=== PATIENT | female | born 1955 | race Caucasian/White ===

== ENCOUNTER 2018-09-05 16:20 | Emergency (ER) | payer MEDICARE, MEDICAID ==
[~2018-09-05] VITALS: Ht 157.5 cm; Wt 59.1 kg
[~2018-09-05 16:20] MED LIST: ALBU6.7H INH; ATOR-2 PO; CITA20TA24 PO; DIFL5DRO LEFTEYE; DIPH25CA83 PO; ESTR0.6261 PO; MELO7.5O PO; OMEP20TA23 PO; PRAM0.5T3 PO; PRED10TA23 PO; PROP10DR3; PYRI100T2 PO; TIOT18CA3
[2018-09-05] MEDS ORDERED: LORazepam 2 mg/ml vial IV ONE (16:50)
[2018-09-05] MEDS ORDERED: morphine 4 MG/ML inj SYRINge IV ONE (16:50)
[2018-09-05] MEDS ORDERED: ondansetron/PF 4mg/2ml inj IV ONE ×2 (16:50→21:35)
[2018-09-05] MEDS ORDERED: normal saline 1000ML IV soln IVB ONE (16:50)
[2018-09-05] MEDS ORDERED: albuterol 2.5 MG/3 ML nebule NEB ONE (16:50)
[2018-09-05 18:12] LABS: BASOPHILS % (AUTO) 0.4 % (0-1); EOSINOPHILS # (AUTO) 0.1 X10'3 (0-0.9); EOSINOPHILS % (AUTO) 0.6 % (0-6); HEMATOCRIT 46.3 % (35.0-45.0); HEMOGLOBIN 15.5 g/dl (12.0-16.0); LYMPHOCYTES # (AUTO) 5.1 X10'3 (1.1-4.8); LYMPHOCYTES % (AUTO) 44.6 % (21-51); MEAN CORPUSCULAR HEMOGLOBIN 30.1 PG (27.0-31.0); MEAN CORPUSCULAR HGB CONC 33.6 % (33.0-36.5); MEAN CORPUSCULAR VOLUME 89.8 FL (78-98); MEAN PLATELET VOLUME 7.9 FL (7.4-10.4); MONOCYTES # (AUTO) 0.4 X10'3 (0-0.9); MONOCYTES % (AUTO) 3.6 % (2-12); NEUTROPHILS # (AUTO) 5.8 X10'3 (1.8-7.7); NEUTROPHILS % (AUTO) 50.8 % (42-75); PLATELET COUNT 200 X10'3 (140-440); RED BLOOD COUNT 5.16 X10'6 (4.20-5.60); RED CELL DISTRIBUTION WIDTH 14.5 % (11.5-14.5); WHITE BLOOD COUNT 11.3 X10'3 (4.5-11.0)
[2018-09-05 18:28] LABS: ALANINE AMINOTRANSFERASE 27 U/L (12-78); ALBUMIN 3.5 G/DL (3.4-5.0); ALBUMIN/GLOBULIN RATIO 0.9 (1.1-1.5); ALKALINE PHOSPHATASE 111 IU/L (46-116); ANION GAP 14 (8-16); ASPARTATE AMINO TRANSFERASE 25 U/L (10-37); BILIRUBIN,TOTAL 0.4 MG/DL (0.1-1.0); BLOOD UREA NITROGEN 13 MG/DL (7-18); BUN/CREATININE RATIO 18.8 (6.6-38.0); CALCIUM 8.7 MG/DL (8.5-10.1); CHLORIDE 106 MMOL/L (99-107); CREATININE 0.69 MG/DL (0.40-0.90); GLUCOSE 94 MG/DL (70-104); POTASSIUM 3.2 MMOL/L (3.5-5.1); SODIUM 143 MMOL/L (135-145); TOTAL CARBON DIOXIDE 23.2 MMOL/L (24-32); TOTAL PROTEIN 7.2 G/DL (6.4-8.2); eGFR 86 ML/MIN
[2018-09-05 18:29] LABS: INR 0.9 INR; PARTIAL THROMBOPLASTIN TIME 27 SECONDS (22-32); PROTHROMBIN TIME 9.1 SECONDS (9.0-12.0)
[2018-09-05 18:34] LABS: MAGNESIUM 1.9 MG/DL (1.5-2.4)
[2018-09-05 19:13] VITALS: BP 141/74
[2018-09-05 20:20] LABS: CLARITY,URINE CLEAR (Clear); COLOR,URINE YELLOW (Yellow); GLUCOSE, URINE NEGATIVE (Neg); KETONES,URINE >=80 mg/dl (Neg); LEUKOCYTE ESTERASE ,URINE NEGATIVE (Neg); NITRITES, URINE NEGATIVE (Neg); OCCULT BLOOD,URINE SMALL (Neg); PROTEIN,URINE NEGATIVE (Neg); UROBILINOGEN,URINE 0.2 E.U/dL (0.2-1.0)
[2018-09-05 20:21] LABS: UA COLLECTION TYPE CLN CATCH MIDSTREAM
[2018-09-05 20:41] LABS: BACTERIA,URINE FEW /HPF (Neg); MUCUS STRANDS FEW /LPF (Neg); SQUAMOUS EPITHELIAL CELL,UR FEW /LPF (FEW); WBC,URINE NONE SEEN /HPF (0-4)
[2018-09-05] MEDS ORDERED: ONDA8TAB6 PO (21:41)
== END 2018-09-05 22:01 | disposition home or self-care (01) ==
LOC: ER 16:21
DX: J06.9 Acute upper respiratory infection, unspecified (principal); J44.1 Chronic obstructive pulmonary disease with (acute) exacerbation; M19.90 Unspecified osteoarthritis, unspecified site; Z90.49 Acquired absence of other specified parts of digestive tract; Z90.710 Acquired absence of both cervix and uterus; Z87.891 Personal history of nicotine dependence; Z79.899 Other long term (current) drug therapy
CPT/HCPCS: 36415; 71045; 74176; 80053; 81001; 83605; 83735; 83880; 84484; 85025; 85610; 85730; 87040; 87502; 87503; 93005; 94640; 94760; 96361; 96374; 96375; 96376; 99284; J2060; J2270; J2405; J7030

== ENCOUNTER 2018-10-20 16:03 | Inpatient (IN) | payer MEDICARE, MEDICAID | END 2018-10-29 12:01 | disposition home or self-care (01) | LOC: ER 16:03 → ED HOLD 19:14 → SUR 3N 21:07 | DX: J96.21 Acute and chronic respiratory failure with hypoxia (principal); J18.9 Pneumonia, unspecified organism; J44.1 Chronic obstructive pulmonary disease with (acute) exacerbation; E87.1 Hypo-osmolality and hyponatremia; J44.0 Chronic obstructive pulmonary disease with (acute) lower respiratory infection; J20.9 Acute bronchitis, unspecified; R00.0 Tachycardia, unspecified; E87.6 Hypokalemia ==

== ENCOUNTER 2018-11-17 18:22 | Emergency (ER) | payer MEDICARE, MEDICAID ==
[~2018-11-17] VITALS: Ht 157.5 cm; Wt 56.0 kg
[~2018-11-17 18:22] MED LIST changes: +ALB0.5UD IH; -ALBU6.7H INH; +ALBU8.5H8 INH; -ATOR-2 PO; +BUDE10.2 INH; -CITA20TA24 PO; -DIFL5DRO LEFTEYE; +DULO20CA17 PO; +FLUT16SP18 NS; -MELO7.5O PO; +MONT10TA24 PO; -OMEP20TA23 PO; -PROP10DR3; -PYRI100T2 PO; -TIOT18CA3; +TIOT18CA3 INH
[2018-11-17 18:29] VITALS: BP 179/101
[2018-11-17 19:08] LABS: EOSINOPHILS # (AUTO) 0.3 X10'3 (0-0.9); HEMATOCRIT 40.9 % (35.0-45.0); HEMOGLOBIN 13.8 g/dl (12.0-16.0); MEAN CORPUSCULAR HGB CONC 33.7 g/dL (33.0-36.5)
[2018-11-17 19:10] LABS: BASOPHILS # (AUTO) 0.2 X10'3 (0-0.2); BASOPHILS % (AUTO) 0.9 % (0-1); EOSINOPHILS % (AUTO) 1.3 % (0-6); LYMPHOCYTES # (AUTO) 15.5 X10'3 (1.1-4.8); LYMPHOCYTES % (AUTO) 68.2 % (21-51); MEAN CORPUSCULAR HEMOGLOBIN 30.3 PG (27.0-31.0); MEAN CORPUSCULAR VOLUME 89.9 FL (78-98); MEAN PLATELET VOLUME 6.8 FL (7.4-10.4); MONOCYTES # (AUTO) 0.8 X10'3 (0-0.9); MONOCYTES % (AUTO) 3.3 % (2-12); NEUTROPHILS % (AUTO) 26.3 % (42-75); PLATELET COUNT 608 X10'3 (140-440); RED BLOOD COUNT 4.55 X10'6 (4.20-5.60); RED CELL DISTRIBUTION WIDTH 14.9 % (11.5-14.5); WHITE BLOOD COUNT 22.7 X10'3 (4.5-11.0)
[2018-11-17 19:19] LABS: ALANINE AMINOTRANSFERASE 17 U/L (12-78); ALBUMIN 3.5 G/DL (3.4-5.0); ALKALINE PHOSPHATASE 102 IU/L (46-116); ANION GAP 7 (8-16); ASPARTATE AMINO TRANSFERASE 11 U/L (10-37); BILIRUBIN,TOTAL 0.2 MG/DL (0.1-1.0); BLOOD UREA NITROGEN 14 MG/DL (7-18); BUN/CREATININE RATIO 15.6 (6.6-38.0); CHLORIDE 107 MMOL/L (99-107); GLUCOSE 94 MG/DL (70-104); MAGNESIUM 2.2 MG/DL (1.5-2.4); POTASSIUM 3.9 MMOL/L (3.5-5.1); SODIUM 145 MMOL/L (135-145); TOTAL CARBON DIOXIDE 31.4 MMOL/L (24-32); eGFR 63 ML/MIN
[2018-11-17 20:36] LABS: TOTAL CELLS COUNTED 100
[2018-11-17 20:37] LABS: PLATELET ESTIMATE INCREASED
[2018-11-17 20:38] LABS: SMUDGE CELLS FEW
[2018-11-17] MEDS ORDERED: albuterol 2.5 MG/3 ML nebule NEB ONE (20:55)
--- NOTE | 2018-11-17 21:08 | NUR ---
rt paged, phone given to pt; slippers placed onto pt
[2018-11-17] MEDS ORDERED: ATOR-2 PO (21:21)
[2018-11-17] MEDS ORDERED: PRAM0.5T12 PO (21:21)
[2018-11-17] MEDS ORDERED: TIOT4MIS2 INH (21:21)
[2018-11-17] MEDS ORDERED: CITA20TA26 PO (21:21)
[2018-11-17] MEDS ORDERED: ESTR1.25 PO (21:21)
[2018-11-17] MEDS ORDERED: UMEC1DIS INH (21:22)
--- NOTE | 2018-11-17 21:23 | NUR ---
I inadvertantly did charting under Sebastian Presley' log in by error. The medication reconsiliation was done by me. Obviously, not Sebastian.
--- NOTE | 2018-11-17 21:34 | NUR ---
assisted pt to find phone number to her [employer] company so she can call them to inform them she is in the hospital, as she has visits scheduled for tomorrow. Also informed her that she is NPO.
[2018-11-17] MEDS ORDERED: metroNIDAZOLE 500mg tablet PO ONE (22:20)
[2018-11-17] MEDS ORDERED: ciprofloxacin 250mg tablet PO ONE (22:20)
[2018-11-17] MEDS ORDERED: CIPR-230 PO (22:21)
[2018-11-17] MEDS ORDERED: METR-159 PO (22:21)
[2018-11-17 22:57] LABS: CLARITY,URINE CLEAR (Clear); COLOR,URINE YELLOW (Yellow); GLUCOSE, URINE NEGATIVE (Neg); KETONES,URINE 15 mg/dl (Neg); LEUKOCYTE ESTERASE ,URINE NEGATIVE (Neg); NITRITES, URINE NEGATIVE (Neg); OCCULT BLOOD,URINE NEGATIVE (Neg); PH,URINE 6.5 (4.8-8.0); PROTEIN,URINE NEGATIVE (Neg); UROBILINOGEN,URINE 0.2 E.U/dL (0.2-1.0)
[2018-11-17 22:58] LABS: UA COLLECTION TYPE CLN CATCH MIDSTREAM
[2018-11-18 09:40] LABS: C DIFF ANTIGEN NEGATIVE (NEGATIVE); C DIFF SPECIMEN=DIARRHEA? ACCEPTABLE; C DIFFICILE TOXINS A&B NEGATIVE (Neg)
== END 2018-11-17 22:35 | disposition home or self-care (01) ==
LOC: ER 18:22
DX: K57.32 Diverticulitis of large intestine without perforation or abscess without bleeding (principal); J44.9 Chronic obstructive pulmonary disease, unspecified; Z90.49 Acquired absence of other specified parts of digestive tract; Z90.710 Acquired absence of both cervix and uterus; Z79.899 Other long term (current) drug therapy
CPT/HCPCS: 36415; 74177; 80053; 81003; 83605; 83735; 84484; 85025; 87040; 87324; 87449; 94640; 94760; 99284; J3490

== ENCOUNTER 2018-11-23 00:23 | Inpatient (IN) | payer MEDICARE, MEDICAID | END 2018-11-26 16:33 | disposition home or self-care (01) | LOC: ER 00:23 → ED HOLD 04:22 → SUR 3N 07:40 | DX: J44.1 Chronic obstructive pulmonary disease with (acute) exacerbation (principal); F32.9 Major depressive disorder, single episode, unspecified; G25.81 Restless legs syndrome ==

== ENCOUNTER 2019-01-07 20:46 | Inpatient (IN) | payer MEDICARE, MEDICAID ==
[~2019-01-07] VITALS: Ht 157.5 cm; Wt 54.5 kg
[~2019-01-07 20:46] MED LIST changes: -ALB0.5UD IH; +ALBU18HF2 INH; +AMOX1TAB15 PO; -BUDE10.2 INH; -ESTR0.6261 PO; -FLUT16SP18 NS; +IPRA3AMP9 NEB; +PANT40TA4 PO; -TIOT18CA3 INH; +TIOT4MIS2 INH
[2019-01-07] MEDS ORDERED: ipratropium/albuterol 3ml nebule NEB ONE (21:00)
[2019-01-07] MEDS ORDERED: methylPREDNISolone sod succ 125mg/2ml vial IV ONE (21:10)
[2019-01-07 21:32] LABS: EOSINOPHILS # (AUTO) 0.1 X10'3 (0-0.9); EOSINOPHILS % (AUTO) 0.5 % (0-6); HEMOGLOBIN 14.3 g/dl (12.0-16.0)
[2019-01-07 21:33] LABS: BASOPHILS # (AUTO) 0.3 X10'3 (0-0.2); BASOPHILS % (AUTO) 1.2 % (0-1); LYMPHOCYTES # (AUTO) 13.2 X10'3 (1.1-4.8); LYMPHOCYTES % (AUTO) 55.6 % (21-51); MEAN CORPUSCULAR HEMOGLOBIN 30.3 PG (27.0-31.0); MEAN CORPUSCULAR HGB CONC 33.4 g/dL (33.0-36.5); MEAN CORPUSCULAR VOLUME 90.8 FL (78-98); MEAN PLATELET VOLUME 7.3 FL (7.4-10.4); MONOCYTES # (AUTO) 0.5 X10'3 (0-0.9); MONOCYTES % (AUTO) 2.2 % (2-12); NEUTROPHILS # (AUTO) 9.6 X10'3 (1.8-7.7); NEUTROPHILS % (AUTO) 40.5 % (42-75); PLATELET COUNT 466 X10'3 (140-440); RED BLOOD COUNT 4.73 X10'6 (4.20-5.60); RED CELL DISTRIBUTION WIDTH 15.3 % (11.5-14.5); WHITE BLOOD COUNT 23.7 X10'3 (4.5-11.0)
[2019-01-07 21:47] LABS: ALANINE AMINOTRANSFERASE 16 U/L (12-78); ALBUMIN 3.6 G/DL (3.4-5.0); ALBUMIN/GLOBULIN RATIO 1.1 (1.1-1.5); ALKALINE PHOSPHATASE 74 IU/L (46-116); ANION GAP 10 (8-16); ASPARTATE AMINO TRANSFERASE 12 U/L (10-37); BILIRUBIN,TOTAL 0.3 MG/DL (0.1-1.0); BLOOD UREA NITROGEN 17 MG/DL (7-18); BUN/CREATININE RATIO 25.4 (6.6-38.0); CALCIUM 9.9 MG/DL (8.5-10.1); CHLORIDE 106 MMOL/L (99-107); CREATININE 0.67 MG/DL (0.40-0.90); GLUCOSE 78 MG/DL (70-104); POTASSIUM 4.1 MMOL/L (3.5-5.1); SODIUM 142 MMOL/L (135-145); TOTAL CARBON DIOXIDE 25.9 MMOL/L (24-32); eGFR 89 ML/MIN
[2019-01-07 21:50] LABS: INR 0.9 INR; PARTIAL THROMBOPLASTIN TIME 24 SECONDS (22-32)
[2019-01-07] MEDS ORDERED: albuterol 2.5 mg/0.5ml nebule NEB ONE (22:10)
[2019-01-07] MEDS ORDERED: azithromycin/NS 500mg/250ml 250 ML IV ONE (22:15)
[2019-01-07] MEDS ORDERED: CefTRIAXone/D5W-Rocephin 1gm 50 ML IV ONE (22:15)
[2019-01-07] MEDS ORDERED: albuterol 2.5 MG/3 ML nebule NEB ONE (22:55)
[2019-01-07] MEDS ORDERED: ondansetron/PF 4mg/2ml inj IV PRN (23:05)
[2019-01-07] MEDS ORDERED: magnesium hydroxide 30ml (MOM) UD suspension PO PRN (23:05)
[2019-01-07] MEDS ORDERED: acetaminophen 325mg tablet PO PRN (23:05)
[2019-01-07] MEDS ORDERED: azithromycin 250mg tablet PO ONE (23:10)
[2019-01-08] VITALS: BP 172/95
[2019-01-08] MEDS ORDERED: albuterol 2.5 MG/3 ML nebule NEB SCH
[2019-01-08 00:16] LABS: PLATELET ESTIMATE INCREASED; TOTAL CELLS COUNTED 100
[2019-01-08] MEDS: methylPREDNISolone sod succ/PF 40mg inj. IV SCH ×3 (01:54→20:45)
[2019-01-08] MEDS: ipratropium/albuterol 3ml nebule NEB SCH ×6 (02:55→23:07)
[2019-01-08] MEDS ORDERED: ipratropium 0.5 MG/2.5ML nebule IH SCH (03:00)
[2019-01-08 05:18] LABS: BASOPHILS # (AUTO) 0.2 X10'3 (0-0.2); EOSINOPHILS % (AUTO) 0 % (0-6); HEMATOCRIT 39.9 % (35.0-45.0); HEMOGLOBIN 13.7 g/dl (12.0-16.0); LYMPHOCYTES # (AUTO) 4.1 X10'3 (1.1-4.8); LYMPHOCYTES % (AUTO) 23.5 % (21-51); MEAN CORPUSCULAR HEMOGLOBIN 31.2 PG (27.0-31.0); MEAN CORPUSCULAR HGB CONC 34.3 g/dL (33.0-36.5); MEAN CORPUSCULAR VOLUME 91.2 FL (78-98); MEAN PLATELET VOLUME 7.6 FL (7.4-10.4); MONOCYTES # (AUTO) 0.1 X10'3 (0-0.9); MONOCYTES % (AUTO) 0.5 % (2-12); PLATELET COUNT 383 X10'3 (140-440); RED BLOOD COUNT 4.37 X10'6 (4.20-5.60); RED CELL DISTRIBUTION WIDTH 15.5 % (11.5-14.5); WHITE BLOOD COUNT 17.3 X10'3 (4.5-11.0)
[2019-01-08 05:26] LABS: ALANINE AMINOTRANSFERASE 16 U/L (12-78); ALBUMIN 3.3 G/DL (3.4-5.0); ALKALINE PHOSPHATASE 69 IU/L (46-116); ANION GAP 12 (8-16); ASPARTATE AMINO TRANSFERASE 11 U/L (10-37); BILIRUBIN,TOTAL 0.1 MG/DL (0.1-1.0); BLOOD UREA NITROGEN 15 MG/DL (7-18); CALCIUM 9.3 MG/DL (8.5-10.1); CHLORIDE 103 MMOL/L (99-107); CREATININE 0.79 MG/DL (0.40-0.90); GLUCOSE 184 MG/DL (70-104); POTASSIUM 3.7 MMOL/L (3.5-5.1); SODIUM 139 MMOL/L (135-145); TOTAL CARBON DIOXIDE 24.3 MMOL/L (24-32); TOTAL PROTEIN 6.7 G/DL (6.4-8.2); eGFR 74 ML/MIN
--- NOTE | 2019-01-08 06:09 | NUR ---
Patient in room [facility] 360. I have received report from JERRELL Veronica and had the opportunity to ask questions and assume patient care.
--- NOTE | 2019-01-08 06:25 | NUR ---
Problems reprioritized. Patient report given Audelia ALLAN, questions answered & plan of care reviewed with Glenys ALLAN and Elvi RN. Patient was admitted at midnight and she denied having pain. She is rsting with her bed in the lowest position and call light within reach.
--- NOTE | 2019-01-08 06:32 | NUR ---
Gave report to Audelia ALLAN with Prudence RN pt is resting on 2L of O2 via NC in no apparent distress, call light and items of freq use within reach.
[2019-01-08 07:42] VITALS: BP 169/95
[2019-01-08] MEDS ORDERED: non-formulary drug (Tiotropium Bromide (Spiriva Respimat) 2 PUFFS) INH SCH (08:00)
[2019-01-08] MEDS: heparin, porcine 5000 units/ml vial SQ SCH ×2 (08:14→20:46)
[2019-01-08] MEDS: montelukast 10mg tablet PO SCH (08:14)
[2019-01-08] MEDS: azithromycin 250mg tablet PO SCH (08:14)
[2019-01-08] MEDS: duloxetine 20mg capsule.DR PO SCH (08:14)
--- NOTE | 2019-01-08 09:31 | NUR ---
Malnutrition consult: Patient's documented wt is stable with documented weights from previous visits. Pt currently on a regular diet with documented PO intake 100% meeting nutrient needs. Pt with no decrease in muscle strength or edema. Pt currently does not meet criteria for malnutrition. Will continue to follow. Addendum: 01/08/19 at [address] Amended: Links added.
[2019-01-08 11:38] VITALS: BP 170/90
--- NOTE | 2019-01-08 11:47 | NUR ---
Patient BP elevated at 169/95 hr 91, 170/[address] Brown notified.
[2019-01-08] MEDS ORDERED: HYDROchlorothiazide 12.5mg capsule PO SCH (12:20)
[2019-01-08 12:30] LABS: ABG BASE EXCESS -1.9 mmol/L (-2.0-3.0); ABG HCO3 21.5 mmol/L (22.0-26.0); ABG OXYGEN SATURATION 96.7 % (95-98); ABG PCO2 (T) 32.4 mmHg (32.0-45.0); ABG PH (T) 7.439 (7.350-7.450); ABG PO2 (T) 79.6 mmHg (83-108); ALLEN'S TEST Positive; FLOW 2 L/min; FMetHb 0.3 % (0.3-1.12); FO2Hb 96.4 % (94-100); TOTAL HEMOGLOBIN 13.5 G/dl (12.0-16.0)
--- NOTE | 2019-01-08 18:35 | NUR ---
Received report from Audelia ALLAN pt is awake and alert on 2L of O2 via NC, pt is waiting for dinner tray, call light and items of freq use within reach.
--- NOTE | 2019-01-08 18:47 | NUR ---
Problems reprioritized. Patient report given, questions answered & plan of care reviewed with Dali Veronica and DALI Boles.
[2019-01-08 19:00] VITALS: BP 137/78
--- NOTE | 2019-01-08 19:05 | NUR ---
Patient in room [facility] 360. I have received report from Audelia MCNALLY and had the opportunity to ask questions and assume patient care with Glenys MCNALLY and Elvi Mcnally.
[2019-01-08] MEDS: pramipexole 0.25mg tablet PO SCH ×2 (20:46)
[2019-01-08] MEDS: lactobacillus rhamnosus 10,000 MMU CELLS/CAPSULE PO SCH (20:47)
[2019-01-08] MEDS ORDERED: diphenhydrAMINE 25mg capsule PO SCH (21:00)
[2019-01-09] VITALS: BP 153/84
[2019-01-09] MEDS: mag hydrox/Alum hydrox/simeth 30ml oral suspension PO PRN ×2 (02:50→07:31)
[2019-01-09] MEDS: ipratropium/albuterol 3ml nebule NEB SCH ×6 (03:13→23:09)
[2019-01-09 06:19] LABS: BASOPHILS # (AUTO) 0.4 X10'3 (0-0.2); BASOPHILS % (AUTO) 1.7 % (0-1); EOSINOPHILS % (AUTO) 0 % (0-6); HEMATOCRIT 40.7 % (35.0-45.0); HEMOGLOBIN 13.5 g/dl (12.0-16.0); LYMPHOCYTES # (AUTO) 6.6 X10'3 (1.1-4.8); MEAN CORPUSCULAR HGB CONC 33.1 g/dL (33.0-36.5); MEAN CORPUSCULAR VOLUME 90.6 FL (78-98); MEAN PLATELET VOLUME 7.3 FL (7.4-10.4); MONOCYTES # (AUTO) 0.6 X10'3 (0-0.9); MONOCYTES % (AUTO) 2.6 % (2-12); NEUTROPHILS % (AUTO) 68.7 % (42-75); PLATELET COUNT 444 X10'3 (140-440); RED BLOOD COUNT 4.49 X10'6 (4.20-5.60); RED CELL DISTRIBUTION WIDTH 15.5 % (11.5-14.5); WHITE BLOOD COUNT 24.6 X10'3 (4.5-11.0)
[2019-01-09 06:23] LABS: ALANINE AMINOTRANSFERASE 16 U/L (12-78); ALBUMIN 3.3 G/DL (3.4-5.0); ALBUMIN/GLOBULIN RATIO 1.1 (1.1-1.5); ALKALINE PHOSPHATASE 68 IU/L (46-116); ANION GAP 9 (8-16); ASPARTATE AMINO TRANSFERASE 11 U/L (10-37); BILIRUBIN,TOTAL 0.2 MG/DL (0.1-1.0); BLOOD UREA NITROGEN 14 MG/DL (7-18); CHLORIDE 100 MMOL/L (99-107); GLUCOSE 148 MG/DL (70-104); POTASSIUM 4.3 MMOL/L (3.5-5.1); SODIUM 140 MMOL/L (135-145); TOTAL CARBON DIOXIDE 31.3 MMOL/L (24-32); TOTAL PROTEIN 6.4 G/DL (6.4-8.2); eGFR 85 ML/MIN
--- NOTE | 2019-01-09 06:23 | NUR ---
Patient in room [facility] 360. I have received report from JERRELL WALKER AND JERRELL JEFFERS and had the opportunity to ask questions and assume patient care.
--- NOTE | 2019-01-09 06:23 | NUR ---
Gave report to Audelia ALLAN with Prudence RN pt is resting in no apparent distress, call light and items of freq use within reach.
--- NOTE | 2019-01-09 06:24 | NUR ---
Problems reprioritized. Patient report given to Audelia ALLAN, questions answered & plan of care reviewed with Glenys ALLAN and Elvi ALLAN.
[2019-01-09] MEDS: montelukast 10mg tablet PO SCH (07:31)
[2019-01-09] MEDS: pantoprazole 40mg Tablet.DR PO SCH (07:31)
[2019-01-09] MEDS: azithromycin 250mg tablet PO SCH (07:31)
[2019-01-09] MEDS: duloxetine 20mg capsule.DR PO SCH (07:31)
[2019-01-09] MEDS: lactobacillus rhamnosus 10,000 MMU CELLS/CAPSULE PO SCH ×2 (07:31→20:31)
[2019-01-09] MEDS: methylPREDNISolone sod succ/PF 40mg inj. IV SCH (07:32)
[2019-01-09] MEDS: CefTRIAXone 2gm/D5W 50ml 50 ML IV SCH (07:32)
[2019-01-09] MEDS: heparin, porcine 5000 units/ml vial SQ SCH ×2 (07:32→20:31)
[2019-01-09] MEDS: HYDROchlorothiazide 12.5mg capsule PO SCH (07:44)
[2019-01-09 07:48] VITALS: BP 147/88
[2019-01-09 11:29] VITALS: BP 140/84
[2019-01-09 18:00] VITALS: BP 141/101
--- NOTE | 2019-01-09 18:30 | NUR ---
Problems reprioritized. Patient report given, questions answered & plan of care reviewed with JERRELL Mcgrath.
--- NOTE | 2019-01-09 18:36 | NUR ---
Patient in room [facility] 360. I have received report from Audelia ALLAN and had the opportunity to ask questions and assume patient care.
[2019-01-09] MEDS: pramipexole 0.25mg tablet PO SCH (20:31)
[2019-01-10] MEDS: ipratropium/albuterol 3ml nebule NEB SCH ×3 (03:12→11:56)
[2019-01-10] MEDS ORDERED: diphenhydrAMINE 25mg capsule PO PRN (03:55)
[2019-01-10 06:30] VITALS: BP 160/81
--- NOTE | 2019-01-10 06:30 | NUR ---
Patient in room [facility] 360. I have received report from JERRELL Mcgrath and had the opportunity to ask questions and assume patient care.
[2019-01-10 06:37] LABS: MEAN PLATELET VOLUME 7.5 FL (7.4-10.4)
[2019-01-10 06:39] LABS: HEMATOCRIT 39.1 % (35.0-45.0); HEMOGLOBIN 12.9 g/dl (12.0-16.0); MEAN CORPUSCULAR HEMOGLOBIN 30.5 PG (27.0-31.0); MEAN CORPUSCULAR VOLUME 92.3 FL (78-98); PLATELET COUNT 423 X10'3 (140-440); RED BLOOD COUNT 4.24 X10'6 (4.20-5.60); RED CELL DISTRIBUTION WIDTH 15.6 % (11.5-14.5)
[2019-01-10 06:44] LABS: WHITE BLOOD COUNT 35.7 X10'3 (4.5-11.0)
--- NOTE | 2019-01-10 06:54 | NUR ---
Problems reprioritized. Patient report given, questions answered & plan of care reviewed with Ashanti RN.
[2019-01-10 07:04] LABS: ALANINE AMINOTRANSFERASE 21 U/L (12-78); ALBUMIN 3.1 G/DL (3.4-5.0); ALBUMIN/GLOBULIN RATIO 1.1 (1.1-1.5); ALKALINE PHOSPHATASE 66 IU/L (46-116); ANION GAP 8 (8-16); ASPARTATE AMINO TRANSFERASE 14 U/L (10-37); BILIRUBIN,TOTAL 0.2 MG/DL (0.1-1.0); BLOOD UREA NITROGEN 15 MG/DL (7-18); CALCIUM 9.5 MG/DL (8.5-10.1); CHLORIDE 102 MMOL/L (99-107); CREATININE 0.79 MG/DL (0.40-0.90); GLUCOSE 100 MG/DL (70-104); SODIUM 138 MMOL/L (135-145); TOTAL CARBON DIOXIDE 28.3 MMOL/L (24-32); eGFR 74 ML/MIN
[2019-01-10 07:20] LABS: ANISOCYTOSIS 1+; NUCLEATED RED BLOOD CELLS 3 /100WBC (0-0); PLATELET ESTIMATE NORMAL; TOTAL CELLS COUNTED 100
[2019-01-10] MEDS ORDERED: methylPREDNISolone sod succ/PF 40mg inj. IV SCH (08:00)
[2019-01-10] MEDS: heparin, porcine 5000 units/ml vial SQ SCH (08:18)
[2019-01-10] MEDS: pantoprazole 40mg Tablet.DR PO SCH (08:19)
[2019-01-10] MEDS: duloxetine 20mg capsule.DR PO SCH (08:19)
[2019-01-10] MEDS: azithromycin 250mg tablet PO SCH (08:19)
[2019-01-10] MEDS: montelukast 10mg tablet PO SCH (08:19)
[2019-01-10] MEDS: CefTRIAXone 2gm/D5W 50ml 50 ML IV SCH (08:19)
[2019-01-10] MEDS: lactobacillus rhamnosus 10,000 MMU CELLS/CAPSULE PO SCH (08:20)
[2019-01-10] MEDS: HYDROchlorothiazide 12.5mg capsule PO SCH (08:20)
[2019-01-10] MEDS: mag hydrox/Alum hydrox/simeth 30ml oral suspension PO PRN (08:39)
[2019-01-10] MEDS ORDERED: LEVO500T2 PO (10:51)
[2019-01-10] MEDS ORDERED: HYDR12.5 PO (10:51)
[2019-01-10] MEDS ORDERED: PRED10TA23 PO (10:51)
[2019-01-10 11:30] VITALS: BP 138/88
--- NOTE | 2019-01-10 12:40 | NUR ---
DC inst provided to pt. IV DC'd, tip intact. All belongings sent w/pt. WC to front lobby.
== END 2019-01-10 12:40 | disposition home or self-care (01) | DRG 191 ==
LOC: ER 20:46 → ED HOLD 01-08 00:17 → SUR 3N 01-08 00:59
PROVIDERS: ADMIT Internal Medicine; ATTEND Internal Medicine
DX: J43.9 Emphysema, unspecified (principal); R65.10 Systemic inflammatory response syndrome (SIRS) of non-infectious origin without acute organ dysfunction; F17.200 Nicotine dependence, unspecified, uncomplicated; I10 Essential (primary) hypertension; K21.9 Gastro-esophageal reflux disease without esophagitis; M79.7 Fibromyalgia; M19.90 Unspecified osteoarthritis, unspecified site; D72.829 Elevated white blood cell count, unspecified; T38.0X5A Adverse effect of glucocorticoids and synthetic analogues, initial encounter; Z90.49 Acquired absence of other specified parts of digestive tract; Z90.710 Acquired absence of both cervix and uterus; Y92.89 Other specified places as the place of occurrence of the external cause
CPT/HCPCS: 36415; 36600; 71045; 80053; 82803; 83605; 83880; 84145; 84484; 85018; 85025; 85610; 85730; 87040; 87070; 93005; 94640; 94760; 96365; 96368; 96375; 99285; G0378; J0456; J0696; J1644; J2405; J2920; J2930; J7611; Q0163

== ENCOUNTER 2019-07-12 00:41 | Inpatient (IN) | payer MEDICARE, MEDICAID ==
[~2019-07-12] VITALS: Ht 157.5 cm; Wt 51.4 kg
[~2019-07-12 00:41] MED LIST changes: -ALBU8.5H8 INH; -AMOX1TAB15 PO; +CLON0.5T4 PO; -DULO20CA17 PO; +DULO20CA50 PO; -PRED10TA23 PO
[2019-07-12] MEDS ORDERED: methylPREDNISolone sod succ 125mg/2ml vial IV ONE ×2 (00:50→03:25)
[2019-07-12] MEDS ORDERED: ipratropium/albuterol 3ml nebule NEB ONE (00:55)
[2019-07-12 01:12] LABS: EOSINOPHILS # (AUTO) 1.1 X10'3 (0-0.9); EOSINOPHILS % (AUTO) 5.1 % (0-6); MEAN PLATELET VOLUME 7.6 FL (7.4-10.4); RED BLOOD COUNT 4.84 X10'6 (4.20-5.60)
[2019-07-12 01:13] LABS: BASOPHILS # (AUTO) 0.2 X10'3 (0-0.2); HEMATOCRIT 43.6 % (35.0-45.0); HEMOGLOBIN 14.9 g/dl (12.0-16.0); LYMPHOCYTES # (AUTO) 13.5 X10'3 (1.1-4.8); MEAN CORPUSCULAR HEMOGLOBIN 30.9 PG (27.0-31.0); MEAN CORPUSCULAR HGB CONC 34.2 g/dL (33.0-36.5); MEAN CORPUSCULAR VOLUME 90.1 FL (78-98); MONOCYTES # (AUTO) 0.5 X10'3 (0-0.9); MONOCYTES % (AUTO) 2.4 % (2-12); NEUTROPHILS # (AUTO) 6.8 X10'3 (1.8-7.7); NEUTROPHILS % (AUTO) 30.5 % (42-75); PLATELET COUNT 320 X10'3 (140-440); RED CELL DISTRIBUTION WIDTH 14.6 % (11.5-14.5); WHITE BLOOD COUNT 22.1 X10'3 (4.5-11.0)
--- NOTE | 2019-07-12 01:24 | NUR ---
labs drawn, bcx collected, rt at bedside now for svn, bp 161/92. now on 2L nc and sats 97%, rr 20
[2019-07-12 01:25] LABS: ALANINE AMINOTRANSFERASE 15 U/L (12-78); ALBUMIN 3.6 G/DL (3.4-5.0); ALKALINE PHOSPHATASE 103 IU/L (46-116); ANION GAP 12 (8-16); ASPARTATE AMINO TRANSFERASE 15 U/L (10-37); BILIRUBIN,TOTAL 0.2 MG/DL (0.1-1.0); BLOOD UREA NITROGEN 18 MG/DL (7-18); BUN/CREATININE RATIO 25.4 (6.6-38.0); CALCIUM 9.4 MG/DL (8.5-10.1); CHLORIDE 107 MMOL/L (99-107); CREATININE 0.71 MG/DL (0.40-0.90); GLUCOSE 110 MG/DL (70-104); POTASSIUM 3.9 MMOL/L (3.5-5.1); SODIUM 145 MMOL/L (135-145); TOTAL CARBON DIOXIDE 26.3 MMOL/L (24-32); TOTAL PROTEIN 7.2 G/DL (6.4-8.2); eGFR 83 ML/MIN
[2019-07-12 01:27] LABS: D-DIMER 0.44 MG/L FEU (0-0.50); PARTIAL THROMBOPLASTIN TIME 26 SECONDS (22-32)
[2019-07-12] MEDS ORDERED: PRED5TAB PO (03:23)
[2019-07-12] MEDS ORDERED: magnesium hydroxide 30ml (MOM) UD suspension PO PRN (03:25)
[2019-07-12] MEDS ORDERED: morphine 2 MG/ML inj. syringe IV PRN ×2 (03:25)
[2019-07-12] MEDS ORDERED: ondansetron/PF 4mg/2ml inj IV PRN (03:25)
[2019-07-12] MEDS ORDERED: acetaminophen 325mg tablet PO PRN (03:25)
--- NOTE | 2019-07-12 04:32 | NUR ---
pt with ipa 350b, rt at bedside reevaluating pt. ra sats 95%.
[2019-07-12] MEDS ORDERED: ipratropium/albuterol 3ml nebule NEB PRN (04:40)
[2019-07-12 05:00] VITALS: BP 167/75
[2019-07-12] MEDS ORDERED: DULO20CA18 PO (05:03)
[2019-07-12 05:06] LABS: TOTAL CELLS COUNTED 100
[2019-07-12 05:07] LABS: PLATELET ESTIMATE NORMAL
[2019-07-12] MEDS ORDERED: albuterol 2.5 MG/3 ML nebule NEB PRN (06:00)
--- NOTE | 2019-07-12 06:45 | NUR ---
Problems reprioritized. Patient report given, questions answered & plan of care reviewed with MEENAKSHI. Addendum: 07/12/19 at 0646 by Leo Johnson RN Amended: Links added.
[2019-07-12] MEDS: ipratropium/albuterol 3ml nebule NEB SCH ×5 (07:10→23:15)
[2019-07-12 07:27] VITALS: BP 144/83
[2019-07-12] MEDS ORDERED: ipratropium 0.5 MG/2.5ML nebule IH SCH (08:00)
[2019-07-12] MEDS: methylPREDNISolone sod succ 125mg/2ml vial IV SCH ×3 (09:12→20:07)
[2019-07-12] MEDS: furosemide 20 MG/2 ML vial IV SCH (09:12)
[2019-07-12] MEDS: montelukast 10mg tablet PO SCH (09:12)
[2019-07-12] MEDS: duloxetine 20mg capsule.DR PO SCH (09:13)
[2019-07-12 11:00] VITALS: BP 163/94
[2019-07-12] MEDS ORDERED: potassium Cl 20 mEq SR tablet PO PRN ×2 (11:15)
[2019-07-12] MEDS ORDERED: magnesium Cl slow-release 64mg tablet PO PRN (11:15)
[2019-07-12] MEDS ORDERED: magnesium 4gm in 100ml NS 100 ML IV PRN (11:15)
[2019-07-12] MEDS ORDERED: potassium CL 10mEq/100ml bag 100 ML IV PRN (11:15)
[2019-07-12] MEDS: levoFLOXACIN-Levaquin 750MG/D5 150 ML IV SCH (12:02)
[2019-07-12] MEDS ORDERED: diphenhydrAMINE 25mg capsule PO PRN (13:15)
[2019-07-12] MEDS ORDERED: benzocaine/menthol oral lozeng 1 EACH BOX MM PRN (14:40)
--- NOTE | 2019-07-12 14:55 | NUR ---
C/o rectal pain, made aware of loose stools and rectal pain. Addendum: 07/12/19 at 1457 by Mickie Gomez RN Amended: Links added.
--- NOTE | 2019-07-12 15:38 | NUR ---
made aware of 167 SBP. No new orders at this time.
--- NOTE | 2019-07-12 19:00 | NUR ---
Gave report to Betty Hernández RN.
--- NOTE | 2019-07-12 19:01 | NUR ---
Patient in room [facility] 350. I have received report from MEENAKSHI ALLAN and had the opportunity to ask questions and assume patient care.
[2019-07-12 20:00] VITALS: BP 152/86
[2019-07-12] MEDS: diphenhydrAMINE 25mg capsule PO SCH (20:06)
[2019-07-12] MEDS: lactobacillus rhamnosus 10,000 MMU CELLS/CAPSULE PO SCH (20:06)
[2019-07-12] MEDS: pramipexole 0.25mg tablet PO SCH (20:06)
[2019-07-13] VITALS: BP 139/78
[2019-07-13] MEDS: LORazepam 0.5 MG tablet PO PRN ×3 (00:20→23:32)
[2019-07-13] MEDS: ipratropium/albuterol 3ml nebule NEB SCH ×6 (02:29→23:14)
[2019-07-13] MEDS: methylPREDNISolone sod succ 125mg/2ml vial IV SCH ×4 (02:52→20:29)
[2019-07-13 05:01] LABS: BASOPHILS # (AUTO) 0.1 X10'3 (0-0.2); BASOPHILS % (AUTO) 0.5 % (0-1); EOSINOPHILS % (AUTO) 0 % (0-6); HEMOGLOBIN 13.7 g/dl (12.0-16.0); LYMPHOCYTES # (AUTO) 3.6 X10'3 (1.1-4.8); LYMPHOCYTES % (AUTO) 15.4 % (21-51); MEAN CORPUSCULAR HEMOGLOBIN 30.5 PG (27.0-31.0); MEAN CORPUSCULAR HGB CONC 34.1 g/dL (33.0-36.5); MEAN CORPUSCULAR VOLUME 89.5 FL (78-98); MEAN PLATELET VOLUME 7.6 FL (7.4-10.4); MONOCYTES # (AUTO) 0.3 X10'3 (0-0.9); MONOCYTES % (AUTO) 1.3 % (2-12); NEUTROPHILS # (AUTO) 19.4 X10'3 (1.8-7.7); NEUTROPHILS % (AUTO) 82.8 % (42-75); PLATELET COUNT 316 X10'3 (140-440); RED BLOOD COUNT 4.48 X10'6 (4.20-5.60); RED CELL DISTRIBUTION WIDTH 14.6 % (11.5-14.5); WHITE BLOOD COUNT 23.4 X10'3 (4.5-11.0)
[2019-07-13 05:16] LABS: ALBUMIN 3.2 G/DL (3.4-5.0); ANION GAP 11 (8-16); BLOOD UREA NITROGEN 19 MG/DL (7-18); BUN/CREATININE RATIO 18.3 (6.6-38.0); CALCIUM 9.7 MG/DL (8.5-10.1); CHLORIDE 98 MMOL/L (99-107); CREATININE 1.04 MG/DL (0.40-0.90); GLUCOSE 190 MG/DL (70-104); MAGNESIUM 1.7 MG/DL (1.5-2.4); PHOSPHORUS 3.1 MG/DL (2.3-4.5); POTASSIUM 3.5 MMOL/L (3.5-5.1); SODIUM 136 MMOL/L (135-145); TOTAL CARBON DIOXIDE 26.8 MMOL/L (24-32); eGFR 54 ML/MIN
--- NOTE | 2019-07-13 06:30 | NUR ---
Problems reprioritized. Patient report given, questions answered & plan of care reviewed with MEENAKSHI ALLAN.
[2019-07-13] MEDS: lactobacillus rhamnosus 10,000 MMU CELLS/CAPSULE PO SCH ×2 (07:55→20:29)
[2019-07-13] MEDS: montelukast 10mg tablet PO SCH (07:55)
[2019-07-13] MEDS: duloxetine 20mg capsule.DR PO SCH (07:55)
[2019-07-13] MEDS: levoFLOXACIN-Levaquin 750MG/D5 150 ML IV SCH (07:55)
[2019-07-13 08:00] VITALS: BP 118/68
[2019-07-13] MEDS: furosemide 20 MG/2 ML vial IV SCH ×2 (08:00→14:49)
--- NOTE | 2019-07-13 10:42 | NUR ---
Linked med note: Ativan 0.5mg PO given. scanner on computer not working. medication checks completed.
[2019-07-13 11:40] VITALS: BP 109/77
--- NOTE | 2019-07-13 12:13 | NUR ---
PAGER ID: [phone] MESSAGE: 350B Charmaine MENDOSA held pt. Lasix r/t decrease in kidney function. Do you want IV Lasix to be PO? Lisa [phone]
--- NOTE | 2019-07-13 14:40 | NUR ---
PAGER ID: [phone] MESSAGE: Please call me regarding the pt. in 350B. Charmaine Sepulveda. Thank you. Mickie [phone] Spoke to MD Linn regarding decreased kidney function and lasix medication, pt. has lung wheezes and has already had a nebulizer treatment. He oked giving the lasix per order. Sputum culture obtained and ordered.
[2019-07-13] MEDS: HYDROcodone/acetaminophen 5mg/325mg tablet PO PRN ×2 (16:06→23:34)
--- NOTE | 2019-07-13 16:25 | NUR ---
PAGER ID: [phone] MESSAGE: Charmaine Coco 350B Pt. c./o unresolved pain 06/24 from mouth to stomach in her "esophagus". VS 98.4, 95% 2L, 28 RR, 166/94. Ativan given at 1030 and not due yet. Increase frequency? CXR? EKG? Mickie [phone]
[2019-07-13] MEDS ORDERED: LORazepam 2 mg/ml vial IV ONE (16:30)
[2019-07-13] MEDS: mag hydrox/Alum hydrox/simeth 30ml oral suspension PO PRN ×2 (16:57→23:36)
[2019-07-13] MEDS: cyanocobalamin 500mcg tablet PO SCH (17:31)
--- NOTE | 2019-07-13 18:25 | NUR ---
Gave report to Sascha ALLAN.
--- NOTE | 2019-07-13 18:30 | NUR ---
Patient in room [facility] 350. I have received report from MEENAKSHI ALLAN and had the opportunity to ask questions and assume patient care.
[2019-07-13 20:00] VITALS: BP 147/85
[2019-07-13] MEDS: heparin, porcine 5000 units/ml vial SQ SCH (20:29)
--- NOTE | 2019-07-13 21:12 | NUR ---
PATIENT'S HS MEDS NOT GIVEN YET, REQUESTS TO TAKE IT LATE SO IT WILL NOT WEAR OFF QUICK AND SHE WILL BE ABLE TO SLEEP.
[2019-07-13] MEDS: pramipexole 0.25mg tablet PO SCH (23:31)
[2019-07-13] MEDS: diphenhydrAMINE 25mg capsule PO SCH (23:32)
[2019-07-14] VITALS: BP 130/68
[2019-07-14] MEDS: methylPREDNISolone sod succ 125mg/2ml vial IV SCH ×4 (02:16→23:41)
[2019-07-14] MEDS: ipratropium/albuterol 3ml nebule NEB SCH ×6 (03:42→23:26)
[2019-07-14 04:09] LABS: BASOPHILS # (AUTO) 0.1 X10'3 (0-0.2); BASOPHILS % (AUTO) 0.3 % (0-1); EOSINOPHILS % (AUTO) 0 % (0-6); HEMATOCRIT 41.4 % (35.0-45.0); HEMOGLOBIN 13.9 g/dl (12.0-16.0); LYMPHOCYTES # (AUTO) 3.5 X10'3 (1.1-4.8); LYMPHOCYTES % (AUTO) 11.9 % (21-51); MEAN CORPUSCULAR HEMOGLOBIN 30.2 PG (27.0-31.0); MEAN CORPUSCULAR HGB CONC 33.6 g/dL (33.0-36.5); MEAN CORPUSCULAR VOLUME 89.9 FL (78-98); MEAN PLATELET VOLUME 7.8 FL (7.4-10.4); MONOCYTES # (AUTO) 0.7 X10'3 (0-0.9); MONOCYTES % (AUTO) 2.4 % (2-12); NEUTROPHILS # (AUTO) 25.2 X10'3 (1.8-7.7); NEUTROPHILS % (AUTO) 85.4 % (42-75); PLATELET COUNT 338 X10'3 (140-440); RED CELL DISTRIBUTION WIDTH 14.2 % (11.5-14.5)
[2019-07-14 04:23] LABS: ANION GAP 9 (8-16); BLOOD UREA NITROGEN 27 MG/DL (7-18); BUN/CREATININE RATIO 25.2 (6.6-38.0); CHLORIDE 97 MMOL/L (99-107); CREATININE 1.07 MG/DL (0.40-0.90); GLUCOSE 161 MG/DL (70-104); MAGNESIUM 2.4 MG/DL (1.5-2.4); PHOSPHORUS 2.8 MG/DL (2.3-4.5); SODIUM 135 MMOL/L (135-145); TOTAL CARBON DIOXIDE 29.2 MMOL/L (24-32); eGFR 52 ML/MIN
[2019-07-14 04:46] LABS: WHITE BLOOD COUNT 29.5 X10'3 (4.5-11.0)
--- NOTE | 2019-07-14 05:02 | NUR ---
CALLED DR. ZUNIGA AND WAS INFORMED OF CRITICAL WBC 29.5 AND PATIENT IS ON SOLUMEDROL. NO NEW ORDERS MADE.
[2019-07-14 05:54] LABS: PLATELET ESTIMATE NORMAL; TOTAL CELLS COUNTED 100
--- NOTE | 2019-07-14 06:19 | NUR ---
Problems reprioritized. Patient report given, questions answered & plan of care reviewed with MICHELLE MARTINEZ RN.
[2019-07-14 07:47] VITALS: BP 128/70
[2019-07-14] MEDS: furosemide 20 MG/2 ML vial IV SCH (09:17)
[2019-07-14] MEDS: montelukast 10mg tablet PO SCH (09:17)
[2019-07-14] MEDS: duloxetine 20mg capsule.DR PO SCH (09:17)
[2019-07-14] MEDS: lactobacillus rhamnosus 10,000 MMU CELLS/CAPSULE PO SCH ×2 (09:17→20:57)
[2019-07-14] MEDS: cyanocobalamin 500mcg tablet PO SCH (09:17)
[2019-07-14] MEDS: heparin, porcine 5000 units/ml vial SQ SCH ×2 (09:19→20:58)
[2019-07-14 12:21] VITALS: BP 130/70
[2019-07-14] MEDS: mag hydrox/Alum hydrox/simeth 30ml oral suspension PO PRN ×2 (13:38→17:56)
--- NOTE | 2019-07-14 18:02 | NUR ---
Patient in room [facility] 350. I have received report from MICHELLE MARTINEZ RN and had the opportunity to ask questions and assume patient care.
--- NOTE | 2019-07-14 18:30 | NUR ---
Patient in room HAL 350. I have received report from JAVIER ALLAN and had the opportunity to ask questions and assume patient care.
[2019-07-14 20:00] VITALS: BP 144/79
[2019-07-14] MEDS: pramipexole 0.25mg tablet PO SCH (20:57)
[2019-07-14] MEDS: diphenhydrAMINE 25mg capsule PO SCH (20:57)
[2019-07-14] MEDS: HYDROcodone/acetaminophen 5mg/325mg tablet PO PRN (23:40)
[2019-07-14] MEDS: LORazepam 0.5 MG tablet PO PRN (23:40)
[2019-07-15] VITALS: BP 136/72
[2019-07-15] MEDS: ipratropium/albuterol 3ml nebule NEB SCH ×3 (02:57→11:09)
[2019-07-15 04:57] LABS: BASOPHILS % (AUTO) 0.1 % (0-1); EOSINOPHILS % (AUTO) 0 % (0-6); HEMATOCRIT 40.5 % (35.0-45.0); HEMOGLOBIN 13.6 g/dl (12.0-16.0); LYMPHOCYTES # (AUTO) 3.5 X10'3 (1.1-4.8); LYMPHOCYTES % (AUTO) 13.7 % (21-51); MEAN CORPUSCULAR HEMOGLOBIN 30.6 PG (27.0-31.0); MEAN CORPUSCULAR HGB CONC 33.6 g/dL (33.0-36.5); MEAN CORPUSCULAR VOLUME 91.1 FL (78-98); MEAN PLATELET VOLUME 7.6 FL (7.4-10.4); MONOCYTES # (AUTO) 0.7 X10'3 (0-0.9); MONOCYTES % (AUTO) 2.6 % (2-12); NEUTROPHILS # (AUTO) 21.6 X10'3 (1.8-7.7); NEUTROPHILS % (AUTO) 83.6 % (42-75); PLATELET COUNT 341 X10'3 (140-440); RED BLOOD COUNT 4.45 X10'6 (4.20-5.60); RED CELL DISTRIBUTION WIDTH 14.7 % (11.5-14.5)
[2019-07-15 05:03] LABS: ANION GAP 4 (8-16); BLOOD UREA NITROGEN 29 MG/DL (7-18); BUN/CREATININE RATIO 27.6 (6.6-38.0); CALCIUM 9.2 MG/DL (8.5-10.1); CHLORIDE 100 MMOL/L (99-107); CREATININE 1.05 MG/DL (0.40-0.90); GLUCOSE 147 MG/DL (70-104); MAGNESIUM 2.8 MG/DL (1.5-2.4); PHOSPHORUS 2.8 MG/DL (2.3-4.5); POTASSIUM 4.6 MMOL/L (3.5-5.1); SODIUM 137 MMOL/L (135-145); TOTAL CARBON DIOXIDE 32.9 MMOL/L (24-32); eGFR 53 ML/MIN
[2019-07-15 05:08] LABS: WHITE BLOOD COUNT 25.8 X10'3 (4.5-11.0)
[2019-07-15 06:08] LABS: TOTAL CELLS COUNTED 100
[2019-07-15 06:09] LABS: PLATELET ESTIMATE NORMAL
--- NOTE | 2019-07-15 06:15 | NUR ---
Problems reprioritized. Patient report given, questions answered & plan of care reviewed with JAVIER ALLAN.
--- NOTE | 2019-07-15 06:20 | NUR ---
Patient in room [facility] 350. I have received report from MICHELLE MARTINEZ RN and had the opportunity to ask questions and assume patient care.
[2019-07-15 07:32] VITALS: BP 141/47
[2019-07-15 07:34] VITALS: BP 141/74
[2019-07-15] MEDS: montelukast 10mg tablet PO SCH (08:30)
[2019-07-15] MEDS: duloxetine 20mg capsule.DR PO SCH (08:30)
[2019-07-15] MEDS: lactobacillus rhamnosus 10,000 MMU CELLS/CAPSULE PO SCH (08:30)
[2019-07-15] MEDS: cyanocobalamin 500mcg tablet PO SCH (08:31)
[2019-07-15] MEDS: furosemide 20 MG/2 ML vial IV SCH (08:32)
[2019-07-15] MEDS: heparin, porcine 5000 units/ml vial SQ SCH (08:32)
[2019-07-15] MEDS: methylPREDNISolone sod succ 125mg/2ml vial IV SCH (08:33)
[2019-07-15] MEDS ORDERED: LEVO500T89 PO (10:50)
[2019-07-15] MEDS ORDERED: LACT1CAP26 PO (10:50)
[2019-07-15] MEDS ORDERED: PRED10TA23 PO (10:50)
[2019-07-15] MEDS ORDERED: CYAN500T63 PO (10:50)
[2019-07-15] MEDS ORDERED: levoFLOXACIN-Levaquin 750MG/D5 150 ML IV SCH (11:00)
[2019-07-15] MEDS ORDERED: ADV50250 INH (11:31)
== END 2019-07-15 12:23 | disposition home health service (06) | DRG 189 ==
LOC: ER 00:41 → ED HOLD 03:22 → SUR 3N 04:43
PROVIDERS: ADMIT Internal Medicine; ATTEND Family Medicine
DX: J96.90 Respiratory failure, unspecified, unspecified whether with hypoxia or hypercapnia (principal); I50.33 Acute on chronic diastolic (congestive) heart failure; C91.10 Chronic lymphocytic leukemia of B-cell type not having achieved remission; J96.11 Chronic respiratory failure with hypoxia; J20.9 Acute bronchitis, unspecified; I27.81 Cor pulmonale (chronic); F32.9 Major depressive disorder, single episode, unspecified; G47.00 Insomnia, unspecified; I72.8 Aneurysm of other specified arteries; M19.90 Unspecified osteoarthritis, unspecified site; F17.210 Nicotine dependence, cigarettes, uncomplicated; F41.9 Anxiety disorder, unspecified; J43.9 Emphysema, unspecified; M79.7 Fibromyalgia; Z79.899 Other long term (current) drug therapy; Z85.72 Personal history of non-Hodgkin lymphomas; Z91.040 Latex allergy status; Z88.8 Allergy status to other drugs, medicaments and biological substances; Z90.710 Acquired absence of both cervix and uterus; Z99.81 Dependence on supplemental oxygen
CPT/HCPCS: 36415; 71045; 80048; 80053; 83605; 83735; 83880; 84100; 84145; 84484; 85025; 85379; 85610; 85730; 87040; 87045; 87046; 87070; 87081; 87502; 87503; 89055; 93005; 94640; 94760; 96374; 97116; 97161; 97530; 99285; G0378; J1644; J1940; J1956; J2060; J2930; Q0163

== ENCOUNTER → 2020-01-15 | Emergency (ER) | payer MEDICARE, MEDICAID ==
[~2020-01-15] VITALS: Ht 157.5 cm; Wt 51.4 kg
[~2020-01-15] MED LIST changes: +ALBU8HFA PO; +CIPR-259 PO; +DULO20CA18 PO; -DULO20CA50 PO; +HYDR-3965 PO; +IPRA3AMP9 IH; -IPRA3AMP9 NEB; +LACT1CAP26 PO; +LISI-600 PO; +METR500T PO; -MONT10TA24 PO; +ONDA4TAB6 PO; -PANT40TA4 PO; +PRED20TA PO; +PRED5TAB PO; +VITA1TAB15 PO; +ciprofloxacin 250mg tablet PO ONE; +dexamethasone sod phosphate 10mg/ml inj IV STA; +ipratropium/albuterol 3ml nebule NEB ONE; +ketorolac tromethamine 15mg/ml inj. IV ONE; +metroNIDAZOLE 500mg tablet PO ONE; +morphine 4 MG/ML inj SYRINge IV PRN; +normal saline 1000ML IV soln IVB ONE; +ondansetron/PF 4mg/2ml inj IV ONE
[2020-01-15 23:38] LABS: BASOPHILS # (AUTO) 0.4 X10'3 (0-0.2); HEMOGLOBIN 15.7 g/dl (12.0-16.0); LYMPHOCYTES # (AUTO) 26.5 X10'3 (1.1-4.8); MONOCYTES # (AUTO) 0.5 X10'3 (0-0.9); MONOCYTES % (AUTO) 1.5 % (2-12)
[2020-01-15 23:40] LABS: BASOPHILS % (AUTO) 1.1 % (0-1); HEMATOCRIT 47.4 % (35.0-45.0); LYMPHOCYTES % (AUTO) 77.4 % (21-51); MEAN CORPUSCULAR HEMOGLOBIN 30.6 PG (27.0-31.0); MEAN CORPUSCULAR HGB CONC 33.2 g/dL (33.0-36.5); MEAN CORPUSCULAR VOLUME 92.2 FL (78-98); NEUTROPHILS # (AUTO) 5.8 X10'3 (1.8-7.7); PLATELET COUNT 355 X10'3 (140-440); RED BLOOD COUNT 5.14 X10'6 (4.20-5.60); RED CELL DISTRIBUTION WIDTH 15.4 % (11.5-14.5)
[2020-01-15 23:46] LABS: WHITE BLOOD COUNT 34.2 X10'3 (4.5-11.0)
[2020-01-15 23:53] LABS: ALANINE AMINOTRANSFERASE 16 U/L (12-78); ALBUMIN/GLOBULIN RATIO 1.3 (1.1-1.5); ALKALINE PHOSPHATASE 87 IU/L (46-116); ANION GAP 5 (8-16); ASPARTATE AMINO TRANSFERASE 16 U/L (10-37); BILIRUBIN,TOTAL 0.3 MG/DL (0.1-1.0); BLOOD UREA NITROGEN 13 MG/DL (7-18); CALCIUM 9.2 MG/DL (8.5-10.1); CHLORIDE 108 MMOL/L (99-107); CREATININE 0.81 MG/DL (0.40-0.90); GLUCOSE 85 MG/DL (70-104); POTASSIUM 4.5 MMOL/L (3.5-5.1); SODIUM 141 MMOL/L (135-145); eGFR 71 ML/MIN
[2020-01-16 00:42] LABS: TOTAL CELLS COUNTED 100
[2020-01-16 00:43] LABS: ANISOCYTOSIS 1+; PLATELET ESTIMATE NORMAL
[2020-01-16 00:48] VITALS: BP 142/89
== END | disposition home or self-care (01) ==
LOC: ER 22:40
DX: I10 Essential (primary) hypertension (principal); J44.1 Chronic obstructive pulmonary disease with (acute) exacerbation; R10.32 Left lower quadrant pain; Z85.6 Personal history of leukemia; R19.7 Diarrhea, unspecified; Z90.49 Acquired absence of other specified parts of digestive tract; Z90.710 Acquired absence of both cervix and uterus; Z91.040 Latex allergy status; Z88.8 Allergy status to other drugs, medicaments and biological substances; Z79.2 Long term (current) use of antibiotics; Z79.899 Other long term (current) drug therapy
CPT/HCPCS: 36415; 70450; 71045; 74176; 80053; 83605; 84145; 84484; 85025; 87040; 93005; 94640; 96374; 96375; 99285; J1100; J1885; J2405; J7030; 94760; J3490

== ENCOUNTER 2020-02-04 02:25 | Emergency (ER) | payer MEDICARE, MEDICAID ==
[~2020-02-04] VITALS: Ht 157.5 cm; Wt 51.4 kg
[~2020-02-04 02:25] MED LIST changes: -CIPR-259 PO; -METR500T PO; -ciprofloxacin 250mg tablet PO ONE; -dexamethasone sod phosphate 10mg/ml inj IV STA; -ipratropium/albuterol 3ml nebule NEB ONE; -ketorolac tromethamine 15mg/ml inj. IV ONE; -metroNIDAZOLE 500mg tablet PO ONE; -morphine 4 MG/ML inj SYRINge IV PRN; -normal saline 1000ML IV soln IVB ONE; -ondansetron/PF 4mg/2ml inj IV ONE
[2020-02-04] MEDS ORDERED: dexamethasone sod phosphate 10mg/ml inj IV STA (02:35)
[2020-02-04] MEDS ORDERED: ipratropium/albuterol 3ml nebule NEB ONE (02:35)
[2020-02-04] MEDS ORDERED: acetaminophen 325mg tablet PO ONE (02:50)
--- NOTE | 2020-02-04 03:06 | NUR ---
ABG RESULTED AND SHOWN TO DR. GARAY BY RT PAZ. PT CURRENTLY RECEIVING SVN. PT REPORTS SHE "STILL CAN'T BREATHE".
[2020-02-04 03:08] LABS: PARTIAL THROMBOPLASTIN TIME 25 SECONDS (22-32)
[2020-02-04] MEDS ORDERED: LOSA25TA41 PO (03:10)
[2020-02-04 03:11] LABS: ALANINE AMINOTRANSFERASE 14 U/L (12-78); ALBUMIN 3.9 G/DL (3.4-5.0); ALBUMIN/GLOBULIN RATIO 1.2 (1.1-1.5); ALKALINE PHOSPHATASE 86 IU/L (46-116); ANION GAP 10 (8-16); ASPARTATE AMINO TRANSFERASE 21 U/L (10-37); BILIRUBIN,TOTAL 0.1 MG/DL (0.1-1.0); BLOOD UREA NITROGEN 14 MG/DL (7-18); BUN/CREATININE RATIO 16.9 (6.6-38.0); CHLORIDE 106 MMOL/L (99-107); CREATININE 0.83 MG/DL (0.40-0.90); GLUCOSE 99 MG/DL (70-104); SODIUM 141 MMOL/L (135-145); TOTAL CARBON DIOXIDE 25.1 MMOL/L (24-32); TOTAL PROTEIN 7.1 G/DL (6.4-8.2); eGFR 69 ML/MIN
[2020-02-04 03:23] LABS: POTASSIUM 4.9 MMOL/L (3.5-5.1)
[2020-02-04] MEDS ORDERED: MONT10TA26 PO (03:24)
[2020-02-04 03:35] LABS: ABG BASE EXCESS 0.1 mmol/L (-2.0-3.0); ABG HCO3 25.1 mmol/L (22.0-26.0); ABG OXYGEN SATURATION 94.8 % (95-98); ABG PCO2 (T) 41.9 mmHg (35.0-45.0); ABG PO2 (T) 73.6 mmHg (83-108); ALLEN'S TEST POSITIVE; FCOHb 0.4 % (0.5-1.5); FO2Hb 94.4 % (94-100); TOTAL HEMOGLOBIN 15.1 G/dl (12.0-16.0)
[2020-02-04 03:57] LABS: BASOPHILS # (AUTO) 0.4 X10'3 (0-0.2); BASOPHILS % (AUTO) 1.2 % (0-1); EOSINOPHILS # (AUTO) 0.5 X10'3 (0-0.9); EOSINOPHILS % (AUTO) 1.6 % (0-6); HEMATOCRIT 48.2 % (35.0-45.0); HEMOGLOBIN 15.6 g/dl (12.0-16.0); LYMPHOCYTES # (AUTO) 27.7 X10'3 (1.1-4.8); LYMPHOCYTES % (AUTO) 83.2 % (21-51); MEAN CORPUSCULAR HEMOGLOBIN 30.1 PG (27.0-31.0); MEAN CORPUSCULAR HGB CONC 32.4 g/dL (33.0-36.5); MEAN PLATELET VOLUME 7.2 FL (7.4-10.4); MONOCYTES # (AUTO) 0.7 X10'3 (0-0.9); PLATELET COUNT 324 X10'3 (140-440); RED BLOOD COUNT 5.18 X10'6 (4.20-5.60); RED CELL DISTRIBUTION WIDTH 14.7 % (11.5-14.5)
[2020-02-04 03:59] LABS: WHITE BLOOD COUNT 33.3 X10'3 (4.5-11.0)
--- NOTE | 2020-02-04 04:01 | NUR ---
DR. GARAY NOTIFIED OF WBC 33.3.
--- NOTE | 2020-02-04 04:15 | NUR ---
PT HAD A "COUGHING ATTACK" AND STATES "I FEEL LIKE I CANT BREATHE." O2 SAT 97%, RR 25. EDMD JARROD MADE AWARE. NO NEW ORDERS. IVAN ALLAN NOTIFIED. WILL CONTINUE TO MONITOR
[2020-02-04 04:24] LABS: PLATELET ESTIMATE NORMAL; TOTAL CELLS COUNTED 100
[2020-02-04 04:25] LABS: SMUDGE CELLS 2+
[2020-02-04] MEDS ORDERED: PRED20TA PO (04:35)
[2020-02-04] MEDS ORDERED: ALBU8HFA PO (04:35)
[2020-02-04] MEDS ORDERED: DOXY100C43 PO (04:35)
[2020-02-04 05:02] VITALS: BP 142/100
== END 2020-02-04 04:52 | disposition home or self-care (01) ==
LOC: ER 02:27
DX: J44.1 Chronic obstructive pulmonary disease with (acute) exacerbation (principal); M19.90 Unspecified osteoarthritis, unspecified site; Z85.6 Personal history of leukemia; Z90.49 Acquired absence of other specified parts of digestive tract; Z90.710 Acquired absence of both cervix and uterus; Z98.890 Other specified postprocedural states; Z91.040 Latex allergy status; Z88.8 Allergy status to other drugs, medicaments and biological substances; Z79.899 Other long term (current) drug therapy
CPT/HCPCS: 36415; 36600; 71045; 80053; 82803; 83880; 84484; 85018; 85025; 85610; 85730; 93005; 94640; 96374; 99285; J1100; 94760

== ENCOUNTER 2020-10-12 03:03 | Emergency (ER) | payer MEDICARE, MEDICAID ==
[~2020-10-12] VITALS: Ht 160 cm; Wt 52.3 kg
[~2020-10-12 03:03] MED LIST changes: -ALBU18HF2 INH; -ALBU8HFA PO; +ATOR10TA70 PO; +AZI25OT PO; +BUDE10.22 INH; -CLON0.5T4 PO; -DIPH25CA83 PO; -HYDR-3965 PO; -IPRA3AMP9 IH; +IPRA3AMP9 NEB; -LACT1CAP26 PO; -LISI-600 PO; +LORA-269 PO; +LOSA25TA41 PO; +MONT10TA21 PO; -ONDA4TAB6 PO; +PANT-47 PO; +PRAM0.5T12 PO; -PRAM0.5T3 PO; -PRED20TA PO; -PRED5TAB PO; -TIOT4MIS2 INH; -VITA1TAB15 PO; +ZET10T PO
[2020-10-12] MEDS ORDERED: iohexol 350MG/ML 100ml bottle IV ONE (03:11)
[2020-10-12 04:08] LABS: BASOPHILS # (AUTO) 0.3 X10'3 (0-0.2); BASOPHILS % (AUTO) 0.6 % (0-1); EOSINOPHILS # (AUTO) 0.9 X10'3 (0-0.9); EOSINOPHILS % (AUTO) 1.9 % (0-6); HEMATOCRIT 42.2 % (35.0-45.0); HEMOGLOBIN 13.8 g/dl (12.0-16.0); LYMPHOCYTES # (AUTO) 42.6 X10'3 (1.1-4.8); LYMPHOCYTES % (AUTO) 85.8 % (21-51); MEAN CORPUSCULAR HEMOGLOBIN 30.3 PG (27.0-31.0); MEAN CORPUSCULAR HGB CONC 32.7 g/dL (33.0-36.5); MEAN CORPUSCULAR VOLUME 92.7 FL (78-98); MEAN PLATELET VOLUME 7.2 FL (7.4-10.4); MONOCYTES # (AUTO) 1.1 X10'3 (0-0.9); MONOCYTES % (AUTO) 2.1 % (2-12); NEUTROPHILS # (AUTO) 4.7 X10'3 (1.8-7.7); NEUTROPHILS % (AUTO) 9.6 % (42-75); PLATELET COUNT 308 X10'3 (140-440); RED BLOOD COUNT 4.55 X10'6 (4.20-5.60)
[2020-10-12 04:18] LABS: WHITE BLOOD COUNT 49.7 X10'3 (4.5-11.0)
[2020-10-12 04:20] LABS: D-DIMER 0.36 MG/L FEU (0-0.50)
[2020-10-12 04:24] LABS: ALANINE AMINOTRANSFERASE 20 U/L (12-78); ALBUMIN 3.9 G/DL (3.4-5.0); ALBUMIN/GLOBULIN RATIO 1.3 (1.1-1.5); ALKALINE PHOSPHATASE 94 IU/L (46-116); ANION GAP 8 (8-16); ASPARTATE AMINO TRANSFERASE 18 U/L (10-37); BILIRUBIN,TOTAL 0.3 MG/DL (0.1-1.0); BLOOD UREA NITROGEN 11 MG/DL (7-18); BUN/CREATININE RATIO 13.6 (6.6-38.0); CHLORIDE 107 MMOL/L (99-107); CREATININE 0.81 MG/DL (0.40-0.90); GLUCOSE 92 MG/DL (70-104); SODIUM 143 MMOL/L (135-145); TOTAL CARBON DIOXIDE 27.6 MMOL/L (24-32); eGFR 71 ML/MIN
[2020-10-12 04:37] LABS: CALCIUM 9.1 MG/DL (8.5-10.1); TROPONIN I < 0.04 NG/ML (0.0-0.05)
[2020-10-12] MEDS ORDERED: methylPREDNISolone sod succ 125mg/2ml vial IV ONE (04:55)
[2020-10-12] MEDS ORDERED: PRED10TA PO (05:06)
[2020-10-12 05:09] LABS: PLATELET ESTIMATE NORMAL; TOTAL CELLS COUNTED 100
[2020-10-12] MEDS ORDERED: ipratropium/albuterol 3ml nebule NEB ONE (05:10)
[2020-10-12] MEDS ORDERED: IPRA3AMP31 IH (05:10)
[2020-10-12 07:37] VITALS: BP 122/78
== END 2020-10-12 07:41 | disposition home or self-care (01) ==
LOC: ER 03:03
DX: J44.1 Chronic obstructive pulmonary disease with (acute) exacerbation (principal); I11.0 Hypertensive heart disease with heart failure; I50.9 Heart failure, unspecified; M19.90 Unspecified osteoarthritis, unspecified site; F41.9 Anxiety disorder, unspecified; F32.9 Major depressive disorder, single episode, unspecified; F17.200 Nicotine dependence, unspecified, uncomplicated; Z90.49 Acquired absence of other specified parts of digestive tract; Z90.710 Acquired absence of both cervix and uterus; Z91.040 Latex allergy status; Z88.8 Allergy status to other drugs, medicaments and biological substances; Z79.2 Long term (current) use of antibiotics; Z79.899 Other long term (current) drug therapy
CPT/HCPCS: 36415; 71045; 71275; 80053; 83605; 83880; 84145; 84484; 85007; 85025; 85379; 87040; 93005; 94640; 96374; 99285; J2930; Q9967; 94760

== ENCOUNTER 2020-11-03 06:16 | Emergency (ER) | payer MEDICARE, MEDICAID ==
[~2020-11-03] VITALS: Ht 160 cm; Wt 53.0 kg
[~2020-11-03 06:16] MED LIST changes: +IPRA3AMP31 IH; +PRED10TA PO
[2020-11-03] MEDS ORDERED: ipratropium/albuterol 3ml nebule NEB ONE (06:50)
[2020-11-03] MEDS ORDERED: azithromycin 250mg tablet PO ONE (06:55)
[2020-11-03] MEDS ORDERED: methylPREDNISolone sod succ 125mg/2ml vial IV ONE (06:55)
[2020-11-03 07:08] LABS: ALANINE AMINOTRANSFERASE 36 U/L (12-78); ALBUMIN 4.2 G/DL (3.4-5.0); ALBUMIN/GLOBULIN RATIO 1.2 (1.1-1.5); ALKALINE PHOSPHATASE 100 IU/L (46-116); ANION GAP 10 (8-16); ASPARTATE AMINO TRANSFERASE 25 U/L (10-37); BILIRUBIN,TOTAL 0.3 MG/DL (0.1-1.0); BLOOD UREA NITROGEN 20 MG/DL (7-18); BUN/CREATININE RATIO 24.4 (6.6-38.0); CALCIUM 9.9 MG/DL (8.5-10.1); CHLORIDE 105 MMOL/L (99-107); CREATININE 0.82 MG/DL (0.40-0.90); GLUCOSE 94 MG/DL (70-104); SODIUM 143 MMOL/L (135-145); TOTAL CARBON DIOXIDE 27.6 MMOL/L (24-32); TOTAL PROTEIN 7.7 G/DL (6.4-8.2); eGFR 70 ML/MIN
[2020-11-03 07:09] LABS: BASOPHILS # (AUTO) 0.5 X10'3 (0-0.2); BASOPHILS % (AUTO) 0.7 % (0-1); EOSINOPHILS # (AUTO) 2.6 X10'3 (0-0.9); EOSINOPHILS % (AUTO) 3.9 % (0-6); HEMATOCRIT 45.6 % (35.0-45.0); HEMOGLOBIN 14.8 g/dl (12.0-16.0); MEAN CORPUSCULAR HEMOGLOBIN 30.2 PG (27.0-31.0); MEAN CORPUSCULAR HGB CONC 32.5 g/dL (33.0-36.5); MEAN CORPUSCULAR VOLUME 92.8 FL (78-98); MEAN PLATELET VOLUME 7.1 FL (7.4-10.4); MONOCYTES % (AUTO) 1.5 % (2-12); NEUTROPHILS # (AUTO) 5.9 X10'3 (1.8-7.7); NEUTROPHILS % (AUTO) 8.9 % (42-75); PLATELET COUNT 333 X10'3 (140-440); RED BLOOD COUNT 4.91 X10'6 (4.20-5.60); RED CELL DISTRIBUTION WIDTH 14.7 % (11.5-14.5)
[2020-11-03 07:15] LABS: MAGNESIUM 2.2 MG/DL (1.5-2.4)
--- NOTE | 2020-11-03 07:41 | NUR ---
Patient with worsening SOB after movement for chest xray. Sp02 at 96% on 2LNC, RR >40, patient in tripod position. Placed on non-rebreather at 15L. Will notify Dr. Wu.
[2020-11-03] MEDS ORDERED: iohexol 350MG/ML 100ml bottle IV ONE (07:42)
--- NOTE | 2020-11-03 07:52 | NUR ---
RT at bedside.
[2020-11-03] MEDS ORDERED: albuterol 2.5 MG/3 ML nebule CONTNEB PRN (08:15)
[2020-11-03 08:30] LABS: BASOPHILS % (MANUAL) 0.5 % (0-1); EOSINOPHILS % (MANUAL) 1.5 % (0-6); IMMATURE CELLS 0.5 % (0-0); LYMPHOCYTES % (MANUAL) 85.5 % (21-51); NEUTROPHILS % (MANUAL) 7.5 % (42-75); PLATELET ESTIMATE NORMAL; REACTIVE LYMPHOCYTES % 3.5 % (0-0); TOTAL CELLS COUNTED 200
--- NOTE | 2020-11-03 08:38 | NUR ---
Back to room from CT
[2020-11-03 09:21] LABS: CLARITY,URINE CLEAR (Clear); COLOR,URINE YELLOW (Yellow); GLUCOSE, URINE NEGATIVE (Neg); KETONES,URINE NEGATIVE (Neg); LEUKOCYTE ESTERASE ,URINE NEGATIVE (Neg); NITRITES, URINE NEGATIVE (Neg); OCCULT BLOOD,URINE SMALL (Neg); PROTEIN,URINE NEGATIVE (Neg); UA COLLECTION TYPE OTHER; UROBILINOGEN,URINE 0.2 E.U/dL (0.2-1.0)
[2020-11-03 09:26] LABS: URINE HCG NEGATIVE (NEG)
[2020-11-03 09:28] LABS: BACTERIA,URINE FEW /HPF (Neg); HYALINE CASTS 0-3 /LPF (NEGATIVE); MUCUS STRANDS NONE SEEN /LPF (Neg); SQUAMOUS EPITHELIAL CELL,UR FEW /LPF (FEW); WBC,URINE 0-4 /HPF (0-4)
--- NOTE | 2020-11-03 09:49 | NUR ---
Second page for RT placed.
--- NOTE | 2020-11-03 09:56 | NUR ---
RT at bedside.
--- NOTE | 2020-11-03 10:52 | NUR ---
Patient removed continuous neb and stated she couldn't breathe with it on. Short break given and breathing treatment re-applied. Importance of receiving medication reviewed with patient.
[2020-11-03] MEDS ORDERED: NYST1000 PO (12:07)
[2020-11-03] MEDS ORDERED: LEVO500T89 PO (12:07)
[2020-11-03] MEDS ORDERED: BUDE10.2 INH (12:07)
[2020-11-03] MEDS ORDERED: IPRA3AMP31 IH (12:07)
[2020-11-03 12:20] VITALS: BP 129/82
== END 2020-11-03 12:27 | disposition home or self-care (01) ==
LOC: ER 06:17
DX: J44.1 Chronic obstructive pulmonary disease with (acute) exacerbation (principal); R06.02 Shortness of breath; R05 Cough; R06.2 Wheezing; I50.9 Heart failure, unspecified; I11.0 Hypertensive heart disease with heart failure; M19.90 Unspecified osteoarthritis, unspecified site; F41.9 Anxiety disorder, unspecified; F32.9 Major depressive disorder, single episode, unspecified; Z90.49 Acquired absence of other specified parts of digestive tract; Z90.710 Acquired absence of both cervix and uterus; Z88.8 Allergy status to other drugs, medicaments and biological substances; Z91.040 Latex allergy status; Z79.2 Long term (current) use of antibiotics; Z79.899 Other long term (current) drug therapy
CPT/HCPCS: 36415; 71045; 71275; 80053; 81001; 81025; 83605; 83735; 83880; 84145; 85007; 85025; 87040; 94640; 94644; 96374; 99285; J2930; Q9967; 93005; 94760; A7015

== ENCOUNTER 2021-11-28 00:50 | Emergency (ER) | payer MEDICARE, MEDICAID ==
[~2021-11-28] VITALS: Ht 157.5 cm; Wt 56.8 kg
[~2021-11-28 00:50] MED LIST changes: +ALBU8HFA IH; -ATOR10TA70 PO; +ATOR40TA71 PO; -AZI25OT PO; +BUDE10.2 INH; -BUDE10.22 INH; +DIPH-1055 PO; +IBUP-24 PO; -IPRA3AMP31 IH; -LORA-269 PO; +MIR1T PO; -PRAM0.5T12 PO; -PRED10TA PO; -ZET10T PO
[2021-11-28] MEDS ORDERED: ondansetron/PF 4mg/2ml inj IV ONE (01:30)
[2021-11-28] MEDS ORDERED: morphine 4 MG/ML inj SYRINge IV ONE (01:30)
[2021-11-28] MEDS ORDERED: MONT-40 (01:39)
[2021-11-28] MEDS ORDERED: FLUT1BLS4 (01:39)
[2021-11-28] MEDS ORDERED: DULO20CA18 (01:39)
[2021-11-28] MEDS ORDERED: ALBU8HFA (01:39)
[2021-11-28] MEDS ORDERED: FAMO-129 (01:39)
[2021-11-28] MEDS ORDERED: LOSA25TA41 (01:39)
[2021-11-28] MEDS ORDERED: ATI1T (01:39)
[2021-11-28] MEDS ORDERED: PRAM1TAB4 (01:39)
[2021-11-28 01:45] LABS: EOSINOPHILS # (AUTO) 0.2 X10'3 (0-0.9); EOSINOPHILS % (AUTO) 0.2 % (0-6); HEMOGLOBIN 13.3 g/dl (12.0-16.0); MEAN CORPUSCULAR HGB CONC 32.7 g/dL (33.0-36.5); MEAN PLATELET VOLUME 7.1 FL (7.4-10.4)
[2021-11-28 01:51] LABS: BASOPHILS # (AUTO) 0.2 X10'3 (0-0.2); BASOPHILS % (AUTO) 0.2 % (0-1); HEMATOCRIT 40.7 % (35.0-45.0); LYMPHOCYTES # (AUTO) 66.1 X10'3 (1.1-4.8); LYMPHOCYTES % (AUTO) 85.7 % (21-51); MEAN CORPUSCULAR HEMOGLOBIN 30.8 PG (27.0-31.0); MEAN CORPUSCULAR VOLUME 94.4 FL (78-98); MONOCYTES # (AUTO) 1.3 X10'3 (0-0.9); MONOCYTES % (AUTO) 1.7 % (2-12); NEUTROPHILS # (AUTO) 9.5 X10'3 (1.8-7.7); NEUTROPHILS % (AUTO) 12.2 % (42-75); PLATELET COUNT 376 X10'3 (140-440); RED BLOOD COUNT 4.32 X10'6 (4.20-5.60); RED CELL DISTRIBUTION WIDTH 14.5 % (11.5-14.5)
--- NOTE | 2021-11-28 01:57 | NUR ---
PATIENT AMBULATES TO BATHROOM WITHOUT ASSISTANCE, RETURNED 100CC YELLOW URINE, CLEAN CAUGHT
[2021-11-28 02:01] LABS: ALANINE AMINOTRANSFERASE 33 U/L (12-78); ALBUMIN 3.9 G/DL (3.4-5.0); ALBUMIN/GLOBULIN RATIO 1.1 (1.1-1.5); ALKALINE PHOSPHATASE 92 IU/L (46-116); ANION GAP 10 (8-16); ASPARTATE AMINO TRANSFERASE 25 U/L (10-37); BILIRUBIN,TOTAL 0.4 MG/DL (0.1-1.0); BLOOD UREA NITROGEN 15 MG/DL (7-18); BUN/CREATININE RATIO 22.7 (6.6-38.0); CALCIUM 9.7 MG/DL (8.5-10.1); CHLORIDE 103 MMOL/L (99-107); CREATININE 0.66 MG/DL (0.40-0.90); GLUCOSE 89 MG/DL (70-104); LIPASE 79 U/L (73-393); POTASSIUM 3.9 MMOL/L (3.5-5.1); SODIUM 142 MMOL/L (135-145); TOTAL CARBON DIOXIDE 29.1 MMOL/L (24-32); TOTAL PROTEIN 7.4 G/DL (6.4-8.2); eGFR 90 ML/MIN
[2021-11-28 02:07] LABS: WHITE BLOOD COUNT 77.2 X10'3 (4.5-11.0)
[2021-11-28 02:28] LABS: CLARITY,URINE CLEAR (Clear); COLOR,URINE YELLOW (Yellow); GLUCOSE, URINE NEGATIVE (Neg); KETONES,URINE NEGATIVE (Neg); LEUKOCYTE ESTERASE ,URINE NEGATIVE (Neg); NITRITES, URINE NEGATIVE (Neg); OCCULT BLOOD,URINE SMALL (Neg); PH,URINE 5.5 (4.8-8.0); PROTEIN,URINE NEGATIVE (Neg); UROBILINOGEN,URINE 0.2 E.U/dL (0.2-1.0)
[2021-11-28 02:36] LABS: UA COLLECTION TYPE CLN CATCH MIDSTREAM
[2021-11-28 02:37] LABS: RBC,URINE 0-2 /HPF (0-2); WBC,URINE 0-4 /HPF (0-4)
[2021-11-28 02:38] LABS: BACTERIA,URINE NONE SEEN /HPF (Neg); MUCUS STRANDS NONE SEEN /LPF (Neg); SQUAMOUS EPITHELIAL CELL,UR FEW /LPF (FEW)
[2021-11-28] MEDS ORDERED: iohexol 300mg/ml 100ml inj. ONE (02:49)
[2021-11-28] MEDS ORDERED: cefepime 1GM in D5W 50mL 50 ML IV ONE (02:50)
[2021-11-28] MEDS ORDERED: vancomycin/NS 1 GM ADD-VANTAGE 250 ML IV ONE (02:50)
[2021-11-28] MEDS ORDERED: cefepime 1GM/NS ADD-VANTAGE 100 ML IV ONE (02:50)
--- NOTE | 2021-11-28 04:24 | NUR ---
PATIENT UPDATED ON STATUS REQUESTING TO EAT. BLANKET GIVEN
[2021-11-28 04:40] LABS: TOTAL CELLS COUNTED 100
[2021-11-28 04:47] LABS: PLATELET ESTIMATE NORMAL
[2021-11-28 04:48] LABS: SMUDGE CELLS 1+
--- NOTE | 2021-11-28 05:13 | NUR ---
PATIENT UP TO THE BEDSIDE COMMODE
[2021-11-28] MEDS ORDERED: POLY119P2 PO (06:43)
[2021-11-28] MEDS ORDERED: GLYC-23 RC (06:43)
[2021-11-28] MEDS ORDERED: polyethylene glycol 3350 17gm powd pack PO STA (06:44)
[2021-11-28 07:08] VITALS: BP 111/56
== END 2021-11-28 07:09 | disposition home or self-care (01) ==
LOC: ER 00:51
DX: R10.84 Generalized abdominal pain (principal); R07.89 Other chest pain; K59.00 Constipation, unspecified; C95.90 Leukemia, unspecified not having achieved remission; I11.0 Hypertensive heart disease with heart failure; I50.9 Heart failure, unspecified; J43.9 Emphysema, unspecified; M19.90 Unspecified osteoarthritis, unspecified site; F41.9 Anxiety disorder, unspecified; F32.A Depression, unspecified; Z90.49 Acquired absence of other specified parts of digestive tract; Z90.710 Acquired absence of both cervix and uterus; Z88.8 Allergy status to other drugs, medicaments and biological substances; Z91.040 Latex allergy status; Z79.899 Other long term (current) drug therapy
CPT/HCPCS: 36415; 71045; 74177; 80053; 81001; 83605; 83690; 84484; 85007; 85025; 87040; 93005; 96365; 96367; 96375; 99285; J0692; J2270; J2405; J3370; Q9967

== ENCOUNTER 2023-08-09 21:56 | Emergency (ER) | payer MEDICARE, MEDICAID ==
[~2023-08-09] VITALS: Ht 157.5 cm; Wt 53.2 kg
[~2023-08-09 21:56] MED LIST changes: +ASPI-611 PO; +BACL10TA2 PO; -BUDE10.2 INH; +CELE-127 PO; -DIPH-1055 PO; +FAMO20TA8 PO; +FLUT1BLS16 INH; -IBUP-24 PO; +LEVO-65 PO; +LORA10TA7 PO; -LOSA25TA41 PO; -MIR1T PO; +MONT-47 PO; -MONT10TA21 PO; -PANT-47 PO; +PRAM0.5T12 PO
[2023-08-09 23:19] LABS: HEMOGLOBIN 13.9 g/dl (12.0-16.0); MEAN CORPUSCULAR HEMOGLOBIN 29.2 PG (27.0-31.0); MEAN CORPUSCULAR HGB CONC 31.5 g/dL (33.0-36.5); MEAN CORPUSCULAR VOLUME 92.7 FL (78-98); MEAN PLATELET VOLUME 6.9 FL (7.4-10.4); PLATELET COUNT 266 X10'3 (140-440); RED BLOOD COUNT 4.74 X10'6 (4.20-5.60); RED CELL DISTRIBUTION WIDTH 14.9 % (11.5-14.5)
[2023-08-09 23:21] LABS: WHITE BLOOD COUNT 90.5 X10'3 (4.5-11.0)
[2023-08-09 23:28] LABS: ALANINE AMINOTRANSFERASE 34 U/L (12-78); ALBUMIN 3.8 G/DL (3.4-5.0); ALBUMIN/GLOBULIN RATIO 1.2 (1.1-1.5); ALKALINE PHOSPHATASE 123 IU/L (46-116); ANION GAP 7 (8-16); ASPARTATE AMINO TRANSFERASE 29 U/L (10-37); BILIRUBIN,TOTAL 0.3 MG/DL (0.1-1.0); BLOOD UREA NITROGEN 16 MG/DL (7-18); BUN/CREATININE RATIO 19.8 (10.0-20.0); CALCIUM 8.9 MG/DL (8.5-10.1); CHLORIDE 103 MMOL/L (99-107); CREATININE 0.81 MG/DL (0.40-0.90); GLUCOSE 141 MG/DL (70-104); POTASSIUM 3.8 MMOL/L (3.5-5.1); SODIUM 136 MMOL/L (135-145); eCRCL 53 ML/MIN; eGFR 71 ML/MIN
[2023-08-09 23:29] LABS: PRO BRAIN NATRIURETIC PEPTIDE 99 PG/ML (0-125)
[2023-08-09 23:51] LABS: TOTAL CELLS COUNTED 100
[2023-08-09 23:53] LABS: PLATELET ESTIMATE NORMAL
[2023-08-09] MEDS ORDERED: albuterol 2.5 MG/3 ML nebule CONTNEB PRN (23:55)
[2023-08-09] MEDS ORDERED: methylPREDNISolone sod succ 125mg/2ml vial IM ONE (23:55)
[2023-08-09 23:56] LABS: ELLIPTOCYTES FEW; HYPOCHROMASIA 1+; POIKILOCYTOSIS FEW
[2023-08-09 23:57] LABS: SMUDGE CELLS FEW
[2023-08-10 00:12] VITALS: PULSE 108; RESP 24; O2SAT 95
[2023-08-10] MEDS ORDERED: ketorolac trometh. 30mg/ml inj. IV ONE (00:25)
[2023-08-10] MEDS ORDERED: acetaminophen 325mg tablet PO ONE (00:25)
[2023-08-10] MEDS ORDERED: methylPREDNISolone sod succ 125mg/2ml vial IV ONE (00:25)
[2023-08-10 01:13] VITALS: PULSE 115; RESP 24; O2SAT 92
[2023-08-10] MEDS ORDERED: HYDROcodone/acetaminophen 5mg/325mg tablet PO PRN (03:10)
[2023-08-10] MEDS ORDERED: HYDROcodone/acetaminophen 10/325mg tab PO PRN (03:10)
[2023-08-10] MEDS ORDERED: magnesium 2GM in 50ml NS 50 ML IV PRN (03:10)
[2023-08-10] MEDS ORDERED: morphine 2 MG/ML inj. syringe IV PRN (03:10)
[2023-08-10] MEDS ORDERED: potassium Cl 20 mEq SR tablet PO PRN ×2 (03:10)
[2023-08-10] MEDS ORDERED: magnesium Cl slow-release 64mg tablet PO PRN (03:10)
[2023-08-10] MEDS ORDERED: acetaminophen 325mg tablet PO PRN (03:10)
[2023-08-10] MEDS ORDERED: magnesium hydroxide 30ml (MOM) UD suspension PO PRN (03:10)
[2023-08-10] MEDS ORDERED: ipratropium/albuterol 3ml nebule NEB PRN (03:10)
[2023-08-10] MEDS ORDERED: ondansetron/PF 4mg/2ml inj IV PRN (03:10)
[2023-08-10] MEDS ORDERED: mag hydrox/Alum hydrox/simeth 30ml oral suspension PO PRN (03:10)
[2023-08-10] MEDS ORDERED: potassium Cl 40MEQ/1/2NS 520ml 520 ML IV PRN (03:10)
[2023-08-10] MEDS ORDERED: magnesium 4gm in 100ml NS 100 ML IV PRN (03:10)
[2023-08-10] MEDS ORDERED: PRED20TA PO (03:34)
[2023-08-10 03:45] VITALS: BP 126/76; PULSE 98; RESP 18; TEMP 98.1; O2SAT 94
[2023-08-10] MEDS ORDERED: azithromycin/NS 500mg/250ml 250 ML IV SCH (08:00)
[2023-08-10] MEDS ORDERED: methylPREDNISolone sod succ 125mg/2ml vial IV SCH (08:00)
[2023-08-10] MEDS ORDERED: K and/or MAG REPLACEMENT MC SCH (08:00)
[2023-08-10] MEDS ORDERED: enoxaparin 40mg/0.4ml syringe SUBCUT SCH (08:00)
[2023-08-10] MEDS ORDERED: CefTRIAXone/D5W-Rocephin 1gm 50 ML IV SCH (08:00)
[2023-08-10] MEDS ORDERED: docusate sod 100mg capsule PO SCH (08:00)
== END 2023-08-10 03:51 | disposition home or self-care (01) ==
LOC: ER 21:57 → ED HOLD 08-10 03:12 → UNDOADMIN 08-10 03:12 → UNDODISIN 08-10 03:35
DX: J43.9 Emphysema, unspecified (principal); F41.9 Anxiety disorder, unspecified; F32.A Depression, unspecified; I50.9 Heart failure, unspecified; I11.0 Hypertensive heart disease with heart failure; M19.90 Unspecified osteoarthritis, unspecified site; K21.9 Gastro-esophageal reflux disease without esophagitis; Z88.8 Allergy status to other drugs, medicaments and biological substances; Z79.82 Long term (current) use of aspirin; Z79.899 Other long term (current) drug therapy; Z91.040 Latex allergy status; Z91.048 Other nonmedicinal substance allergy status; Z90.49 Acquired absence of other specified parts of digestive tract; Z90.710 Acquired absence of both cervix and uterus; Z85.6 Personal history of leukemia; Z87.11 Personal history of peptic ulcer disease; Z82.3 Family history of stroke; Z82.0 Family history of epilepsy and other diseases of the nervous system; Z83.3 Family history of diabetes mellitus
CPT/HCPCS: 36415; 71045; 80053; 83735; 83880; 84484; 85007; 85025; 93005; 94640; 94644; 96374; 96375; 99285; J1885; J2930; 94760; G0378

== ENCOUNTER 2023-09-29 14:03 | Inpatient (IN) | payer MEDICARE, MEDICAID ==
[~2023-09-29] VITALS: Ht 157.5 cm; Wt 49.1 kg
[~2023-09-29 14:03] MED LIST changes: -LEVO-65 PO
[2023-09-29 14:23] LABS: MEAN CORPUSCULAR VOLUME 92.6 FL (78-98); MEAN PLATELET VOLUME 7.2 FL (7.4-10.4)
[2023-09-29 14:29] LABS: BASOPHILS # (AUTO) 0.2 X10'3 (0-0.2); BASOPHILS % (AUTO) 0.3 % (0-1); EOSINOPHILS # (AUTO) 0.9 X10'3 (0-0.9); EOSINOPHILS % (AUTO) 1.1 % (0-6); HEMATOCRIT 42.9 % (35.0-45.0); HEMOGLOBIN 13.6 g/dl (12.0-16.0); LYMPHOCYTES # (AUTO) 72.5 X10'3 (1.1-4.8); LYMPHOCYTES % (AUTO) 85.1 % (21-51); MEAN CORPUSCULAR HEMOGLOBIN 29.3 PG (27.0-31.0); MEAN CORPUSCULAR HGB CONC 31.7 g/dL (33.0-36.5); MONOCYTES # (AUTO) 2.6 X10'3 (0-0.9); MONOCYTES % (AUTO) 3.1 % (2-12); NEUTROPHILS # (AUTO) 8.9 X10'3 (1.8-7.7); NEUTROPHILS % (AUTO) 10.4 % (42-75); PLATELET COUNT 256 X10'3 (140-440); RED BLOOD COUNT 4.63 X10'6 (4.20-5.60); RED CELL DISTRIBUTION WIDTH 14.5 % (11.5-14.5)
[2023-09-29 14:35] LABS: WHITE BLOOD COUNT 85.1 X10'3 (4.5-11.0)
[2023-09-29 14:37] LABS: ALANINE AMINOTRANSFERASE 23 U/L (12-78); ALBUMIN 3.9 G/DL (3.4-5.0); ALBUMIN/GLOBULIN RATIO 1.1 (1.1-1.5); ALKALINE PHOSPHATASE 121 IU/L (46-116); ANION GAP 9 (8-16); ASPARTATE AMINO TRANSFERASE 22 U/L (10-37); BILIRUBIN,TOTAL 0.4 MG/DL (0.1-1.0); BLOOD UREA NITROGEN 15 MG/DL (7-18); BUN/CREATININE RATIO 20.3 (10.0-20.0); CALCIUM 9.3 MG/DL (8.5-10.1); CHLORIDE 103 MMOL/L (99-107); CREATININE 0.74 MG/DL (0.40-0.90); GLUCOSE 106 MG/DL (70-104); SODIUM 137 MMOL/L (135-145); TOTAL CARBON DIOXIDE 24.7 MMOL/L (24-32); TOTAL PROTEIN 7.3 G/DL (6.4-8.2); eGFR 78 ML/MIN
[2023-09-29] MEDS ORDERED: ipratropium/albuterol 3ml nebule NEB PRN (14:45)
[2023-09-29] MEDS ORDERED: albuterol 2.5 MG/3 ML nebule NEB ONE (14:45)
[2023-09-29 14:48] LABS: PRO BRAIN NATRIURETIC PEPTIDE 246 PG/ML (0-125)
[2023-09-29 14:59] VITALS: PULSE 102; RESP 22; O2SAT 98
[2023-09-29 15:08] VITALS: PULSE 97; RESP 21; O2SAT 98
[2023-09-29 15:14] VITALS: PULSE 94; RESP 21; O2SAT 99
[2023-09-29 15:25] LABS: PLATELET ESTIMATE NORMAL; TOTAL CELLS COUNTED 100
[2023-09-29] MEDS ORDERED: normal saline 1000ml 1,000 ML IV ONE (16:30)
[2023-09-29] MEDS ORDERED: methylPREDNISolone sod succ 125mg/2ml vial IV ONE (16:30)
[2023-09-29] MEDS ORDERED: CefTRIAXone 2gm/D5W 50ml BAG 50 ML IV ONE (16:30)
[2023-09-29] MEDS ORDERED: azithromycin/NS 500mg/250ml 250 ML IV ONE (16:30)
[2023-09-29 16:47] VITALS: PULSE 106; RESP 24; O2SAT 96
[2023-09-29] MEDS ORDERED: iohexol 350MG/ML 100ml bottle IV ONE (16:53)
[2023-09-29] MEDS ORDERED: LORazepam 2 mg/ml vial IV ONE (20:03)
[2023-09-29] MEDS ORDERED: dexamethasone sod phosphate 10mg/ml inj IV STA (20:39)
[2023-09-29] MEDS ORDERED: LORazepam 2 mg/ml vial IV PRN (21:15)
[2023-09-29] MEDS ORDERED: mag hydrox/Alum hydrox/simeth 30ml oral suspension PO PRN (21:15)
[2023-09-29] MEDS ORDERED: acetaminophen 325mg tablet PO PRN ×2 (21:15)
[2023-09-29] MEDS ORDERED: potassium Cl 20 mEq SR tablet PO PRN ×2 (21:15)
[2023-09-29] MEDS ORDERED: magnesium 2GM in 50ml NS 50 ML IV PRN (21:15)
[2023-09-29] MEDS ORDERED: potassium Cl 40MEQ/1/2NS 520ml 520 ML IV PRN (21:15)
[2023-09-29] MEDS ORDERED: nicotine 21mg patch - 24 hr TD ONE (21:15)
[2023-09-29] MEDS ORDERED: magnesium 4gm in 100ml NS 100 ML IV PRN (21:15)
[2023-09-29] MEDS ORDERED: albuterol 2.5 MG/3 ML nebule NEB PRN (21:15)
[2023-09-29] MEDS ORDERED: ondansetron/PF 4mg/2ml inj IV PRN (21:15)
[2023-09-29] MEDS: ipratropium/albuterol 3ml nebule NEB SCH (23:44)
[2023-09-29 23:45] VITALS: PULSE 97; RESP 18; O2SAT 98
[2023-09-29 23:50] VITALS: PULSE 98; RESP 16
[2023-09-30] VITALS (17 sets, daily range): BP systolic 128–143; BP diastolic 60–82; PULSE 86–109; RESP 13–24; TEMP 97.1–98.2; O2SAT 96–99
[2023-09-30] MEDS: HYDROcodone/acetaminophen 5mg/325mg tablet PO PRN ×2 (00:42→21:04)
[2023-09-30] MEDS: heparin, porcine 5000 units/ml vial SQ SCH ×3 (00:44→17:41)
[2023-09-30] MEDS: dexamethasone 4mg/ml inj IV SCH ×3 (00:45→21:02)
[2023-09-30] MEDS: piperacillin/tazo 4.5gm/100ml 100 ML IV SCH ×3 (02:01→21:02)
[2023-09-30] MEDS: ipratropium/albuterol 3ml nebule NEB SCH ×6 (03:58→23:36)
[2023-09-30] MEDS: budesonide 0.5mg/2ml UD nebule IH SCH (07:46)
[2023-09-30] MEDS: K and/or MAG REPLACEMENT MC SCH ×2 (08:00→20:00)
[2023-09-30 08:27] LABS: BASOPHILS # (AUTO) 0.2 X10'3 (0-0.2); EOSINOPHILS # (AUTO) 0.1 X10'3 (0-0.9); MEAN PLATELET VOLUME 7.5 FL (7.4-10.4); RED CELL DISTRIBUTION WIDTH 14.9 % (11.5-14.5)
[2023-09-30 08:29] LABS: BASOPHILS % (AUTO) 0.5 % (0-1); EOSINOPHILS % (AUTO) 0.2 % (0-6); HEMATOCRIT 36.2 % (35.0-45.0); HEMOGLOBIN 11.8 g/dl (12.0-16.0); LYMPHOCYTES % (AUTO) 82.9 % (21-51); MEAN CORPUSCULAR HGB CONC 32.6 g/dL (33.0-36.5); MEAN CORPUSCULAR VOLUME 91.9 FL (78-98); MONOCYTES # (AUTO) 1.1 X10'3 (0-0.9); MONOCYTES % (AUTO) 2.1 % (2-12); NEUTROPHILS # (AUTO) 7.4 X10'3 (1.8-7.7); NEUTROPHILS % (AUTO) 14.3 % (42-75); PLATELET COUNT 220 X10'3 (140-440); RED BLOOD COUNT 3.94 X10'6 (4.20-5.60)
[2023-09-30 08:32] LABS: WHITE BLOOD COUNT 51.8 X10'3 (4.5-11.0)
[2023-09-30 08:43] LABS: ALANINE AMINOTRANSFERASE 21 U/L (12-78); ALBUMIN 3.1 G/DL (3.4-5.0); ALKALINE PHOSPHATASE 104 IU/L (46-116); ANION GAP 10 (8-16); ASPARTATE AMINO TRANSFERASE 21 U/L (10-37); BILIRUBIN,TOTAL 0.3 MG/DL (0.1-1.0); BLOOD UREA NITROGEN 12 MG/DL (7-18); BUN/CREATININE RATIO 13.6 (10.0-20.0); CALCIUM 8.6 MG/DL (8.5-10.1); CHLORIDE 103 MMOL/L (99-107); CREATININE 0.88 MG/DL (0.40-0.90); GLUCOSE 269 MG/DL (70-104); MAGNESIUM 1.8 MG/DL (1.5-2.4); POTASSIUM 3.7 MMOL/L (3.5-5.1); SODIUM 138 MMOL/L (135-145); TOTAL CARBON DIOXIDE 25.5 MMOL/L (24-32); TOTAL PROTEIN 6.2 G/DL (6.4-8.2); eCRCL 48 ML/MIN; eGFR 64 ML/MIN
[2023-09-30 08:50] LABS: BURR CELLS FEW; SCHISTOCYTES FEW; TOTAL CELLS COUNTED 100
[2023-09-30 08:51] LABS: PLATELET ESTIMATE NORMAL
[2023-09-30] MEDS: docusate sod 100mg capsule PO SCH ×2 (09:43→21:04)
[2023-09-30] MEDS ORDERED: famotidine 20mg tablet PO SCH (21:00)
[2023-09-30] MEDS: atorvastatin 20mg tablet PO SCH (21:03)
[2023-09-30] MEDS: temazepam 15mg capsule PO SCH (21:03)
[2023-09-30] MEDS: montelukast 10mg tablet PO SCH (21:04)
[2023-10-01] VITALS (11 sets, daily range): BP systolic 91–155; BP diastolic 54–89; PULSE 74–111; RESP 17–26; TEMP 97.4–99; O2SAT 93–100
[2023-10-01] MEDS: heparin, porcine 5000 units/ml vial SQ SCH ×4 (01:22→19:18)
[2023-10-01] MEDS: ipratropium/albuterol 3ml nebule NEB SCH ×4 (03:00→15:29)
[2023-10-01] MEDS: piperacillin/tazo 4.5gm/100ml 100 ML IV SCH ×3 (04:26→19:15)
[2023-10-01] MEDS: dexamethasone 4mg/ml inj IV SCH ×3 (04:26→19:15)
[2023-10-01] MEDS: HYDROcodone/acetaminophen 5mg/325mg tablet PO PRN (04:28)
[2023-10-01] MEDS: budesonide 0.5mg/2ml UD nebule IH SCH (07:26)
[2023-10-01] MEDS: K and/or MAG REPLACEMENT MC SCH ×2 (08:00→20:00)
[2023-10-01 08:26] LABS: EOSINOPHILS % (AUTO) 0 % (0-6); HEMOGLOBIN 11.4 g/dl (12.0-16.0)
[2023-10-01 08:29] LABS: BASOPHILS # (AUTO) 0.2 X10'3 (0-0.2); BASOPHILS % (AUTO) 0.3 % (0-1); HEMATOCRIT 35.6 % (35.0-45.0); LYMPHOCYTES # (AUTO) 46.7 X10'3 (1.1-4.8); MEAN CORPUSCULAR HEMOGLOBIN 29.4 PG (27.0-31.0); MEAN CORPUSCULAR VOLUME 91.7 FL (78-98); MEAN PLATELET VOLUME 7.6 FL (7.4-10.4); MONOCYTES # (AUTO) 1.6 X10'3 (0-0.9); MONOCYTES % (AUTO) 2.3 % (2-12); NEUTROPHILS # (AUTO) 21.1 X10'3 (1.8-7.7); NEUTROPHILS % (AUTO) 30.4 % (42-75); PLATELET COUNT 226 X10'3 (140-440); RED BLOOD COUNT 3.88 X10'6 (4.20-5.60); RED CELL DISTRIBUTION WIDTH 14.9 % (11.5-14.5)
[2023-10-01 08:31] LABS: WHITE BLOOD COUNT 69.6 X10'3 (4.5-11.0)
[2023-10-01 08:32] LABS: ALANINE AMINOTRANSFERASE 24 U/L (12-78); ALBUMIN 3.1 G/DL (3.4-5.0); ALKALINE PHOSPHATASE 87 IU/L (46-116); ANION GAP 8 (8-16); ASPARTATE AMINO TRANSFERASE 16 U/L (10-37); BILIRUBIN,TOTAL 0.3 MG/DL (0.1-1.0); BLOOD UREA NITROGEN 19 MG/DL (7-18); BUN/CREATININE RATIO 23.2 (10.0-20.0); CALCIUM 9.4 MG/DL (8.5-10.1); CHLORIDE 103 MMOL/L (99-107); CREATININE 0.82 MG/DL (0.40-0.90); GLUCOSE 160 MG/DL (70-104); POTASSIUM 4.2 MMOL/L (3.5-5.1); SODIUM 139 MMOL/L (135-145); TOTAL PROTEIN 6.1 G/DL (6.4-8.2); eCRCL 52 ML/MIN; eGFR 70 ML/MIN
[2023-10-01 08:55] LABS: BURR CELLS FEW; ELLIPTOCYTES FEW; PLATELET ESTIMATE NORMAL; TOTAL CELLS COUNTED 100
[2023-10-01] MEDS: docusate sod 100mg capsule PO SCH ×2 (08:59→19:13)
[2023-10-01] MEDS: aspirin 81mg, enteric-coated 1 TAB TABLET.DR PO SCH (08:59)
[2023-10-01] MEDS ORDERED: famotidine 20mg tablet PO SCH (16:33)
[2023-10-01] MEDS: temazepam 15mg capsule PO SCH (19:16)
[2023-10-01] MEDS: atorvastatin 20mg tablet PO SCH (19:16)
[2023-10-01] MEDS: HYDROcodone/acetaminophen 10/325mg tab PO PRN (19:19)
[2023-10-01] MEDS: montelukast 10mg tablet PO SCH (21:00)
[2023-10-01 23:10] LABS: MAGNESIUM 1.8 MG/DL (1.5-2.4); POTASSIUM 4.3 MMOL/L (3.5-5.1)
[2023-10-02] VITALS (7 sets, daily range): BP systolic 117–134; BP diastolic 62–84; PULSE 84–108; RESP 18–25; TEMP 97.8–97.9; O2SAT 93–98
[2023-10-02] MEDS: ipratropium/albuterol 3ml nebule NEB SCH ×5 (00:11→11:45)
[2023-10-02] MEDS: montelukast 10mg tablet PO SCH (00:49)
[2023-10-02] MEDS: HYDROcodone/acetaminophen 10/325mg tab PO PRN (00:49)
[2023-10-02] MEDS: dexamethasone 4mg/ml inj IV SCH (05:15)
[2023-10-02] MEDS: piperacillin/tazo 4.5gm/100ml 100 ML IV SCH (05:16)
[2023-10-02] MEDS: K and/or MAG REPLACEMENT MC SCH (08:00)
[2023-10-02 08:37] LABS: BASOPHILS # (AUTO) 0.2 X10'3 (0-0.2); BASOPHILS % (AUTO) 0.3 % (0-1); EOSINOPHILS % (AUTO) 0 % (0-6); HEMATOCRIT 37.2 % (35.0-45.0); HEMOGLOBIN 11.7 g/dl (12.0-16.0); LYMPHOCYTES # (AUTO) 48.1 X10'3 (1.1-4.8); MEAN CORPUSCULAR HEMOGLOBIN 29.3 PG (27.0-31.0); MEAN CORPUSCULAR HGB CONC 31.6 g/dL (33.0-36.5); MEAN CORPUSCULAR VOLUME 92.7 FL (78-98); MEAN PLATELET VOLUME 7.6 FL (7.4-10.4); MONOCYTES # (AUTO) 5.5 X10'3 (0-0.9); MONOCYTES % (AUTO) 7.3 % (2-12); NEUTROPHILS # (AUTO) 21.3 X10'3 (1.8-7.7); NEUTROPHILS % (AUTO) 28.4 % (42-75); PLATELET COUNT 243 X10'3 (140-440); RED BLOOD COUNT 4.01 X10'6 (4.20-5.60)
[2023-10-02 08:44] LABS: WHITE BLOOD COUNT 75.1 X10'3 (4.5-11.0)
[2023-10-02 08:53] LABS: ALANINE AMINOTRANSFERASE 23 U/L (12-78); ALBUMIN/GLOBULIN RATIO 1.1 (1.1-1.5); ALKALINE PHOSPHATASE 71 IU/L (46-116); ANION GAP 6 (8-16); ASPARTATE AMINO TRANSFERASE 19 U/L (10-37); BILIRUBIN,TOTAL 0.2 MG/DL (0.1-1.0); BLOOD UREA NITROGEN 19 MG/DL (7-18); BUN/CREATININE RATIO 22.9 (10.0-20.0); CHLORIDE 103 MMOL/L (99-107); CREATININE 0.83 MG/DL (0.40-0.90); GLUCOSE 133 MG/DL (70-104); POTASSIUM 4.2 MMOL/L (3.5-5.1); SODIUM 138 MMOL/L (135-145); TOTAL CARBON DIOXIDE 29.4 MMOL/L (24-32); TOTAL PROTEIN 5.8 G/DL (6.4-8.2); eCRCL 51 ML/MIN; eGFR 69 ML/MIN
[2023-10-02] MEDS: budesonide 0.5mg/2ml UD nebule IH SCH (08:55)
[2023-10-02] MEDS: docusate sod 100mg capsule PO SCH (08:56)
[2023-10-02] MEDS: aspirin 81mg, enteric-coated 1 TAB TABLET.DR PO SCH (08:56)
[2023-10-02] MEDS: heparin, porcine 5000 units/ml vial SQ SCH (09:01)
[2023-10-02 09:13] LABS: PLATELET ESTIMATE NORMAL; TOTAL CELLS COUNTED 100
[2023-10-02 09:14] LABS: BURR CELLS FEW; ELLIPTOCYTES FEW
[2023-10-02] MEDS ORDERED: PRED10TA23 PO (12:49)
[2023-10-02] MEDS ORDERED: AMOX-115 PO (12:49)
== END 2023-10-02 15:26 | disposition home health service (06) | DRG 189 ==
LOC: ER 14:03 → ED HOLD 21:37 → PCU 3S 23:20
PROVIDERS: ADMIT Family Medicine; ATTEND Internal Medicine
PROC: B32T1ZZ Computerized Tomography (CT Scan) of Left Pulmonary Artery using Low Osmolar Contrast (ICD-10-PCS; principal; 2023-09-29)
PROC: B3201ZZ Computerized Tomography (CT Scan) of Thoracic Aorta using Low Osmolar Contrast (ICD-10-PCS; 2023-09-29)
PROC: B32S1ZZ Computerized Tomography (CT Scan) of Right Pulmonary Artery using Low Osmolar Contrast (ICD-10-PCS; 2023-09-29)
DX: J96.21 Acute and chronic respiratory failure with hypoxia (principal); I50.32 Chronic diastolic (congestive) heart failure; R65.10 Systemic inflammatory response syndrome (SIRS) of non-infectious origin without acute organ dysfunction; C91.10 Chronic lymphocytic leukemia of B-cell type not having achieved remission; J43.9 Emphysema, unspecified; I11.0 Hypertensive heart disease with heart failure; F17.210 Nicotine dependence, cigarettes, uncomplicated; M79.7 Fibromyalgia; D63.8 Anemia in other chronic diseases classified elsewhere; F41.9 Anxiety disorder, unspecified; F32.A Depression, unspecified; K21.9 Gastro-esophageal reflux disease without esophagitis; Z90.710 Acquired absence of both cervix and uterus; Z88.8 Allergy status to other drugs, medicaments and biological substances; Z91.040 Latex allergy status; Z79.82 Long term (current) use of aspirin; Z79.899 Other long term (current) drug therapy; Z90.49 Acquired absence of other specified parts of digestive tract; Z86.73 Personal history of transient ischemic attack (TIA), and cerebral infarction without residual deficits; Z99.81 Dependence on supplemental oxygen; Z87.11 Personal history of peptic ulcer disease
CPT/HCPCS: 36415; 71045; 71275; 80053; 83735; 83880; 84132; 84484; 85007; 85025; 87081; 93005; 94640; 94760; 97110; 97161; 97530; 99285; G0378; J0456; J0696; J1100; J1644; J2543; J3490; J7030; J7040; Q9967

== ENCOUNTER → 2023-12-30 | Outpatient (CLI) | payer MEDICARE, MEDICAID | END | disposition home or self-care (01) | LOC: LAB 16:43 | PROVIDERS: ATTEND Family Medicine | DX: M19.042 Primary osteoarthritis, left hand (principal); M19.041 Primary osteoarthritis, right hand; M79.641 Pain in right hand; M79.642 Pain in left hand | CPT/HCPCS: 73130 ==

== ENCOUNTER 2024-05-10 16:44 | Emergency (ER) | payer MEDICARE, MEDICAID ==
[~2024-05-10] VITALS: Ht 157.5 cm; Wt 46.4 kg
[2024-05-10 17:34] LABS: MEAN PLATELET VOLUME 6.9 FL (7.4-10.4)
[2024-05-10 17:37] LABS: BASOPHILS # (AUTO) 0.1 X10'3 (0-0.2); BASOPHILS % (AUTO) 0.1 % (0-1); EOSINOPHILS # (AUTO) 1.4 X10'3 (0-0.9); EOSINOPHILS % (AUTO) 0.7 % (0-6); HEMATOCRIT 39.6 % (35.0-45.0); HEMOGLOBIN 12.7 g/dl (12.0-16.0); LYMPHOCYTES # (AUTO) 180.5 X10'3 (1.1-4.8); LYMPHOCYTES % (AUTO) 93.7 % (21-51); MEAN CORPUSCULAR HEMOGLOBIN 30.2 PG (27.0-31.0); MEAN CORPUSCULAR VOLUME 94.2 FL (78-98); MONOCYTES # (AUTO) 1.9 X10'3 (0-0.9); NEUTROPHILS # (AUTO) 8.7 X10'3 (1.8-7.7); NEUTROPHILS % (AUTO) 4.5 % (42-75); PLATELET COUNT 226 X10'3 (140-440); RED CELL DISTRIBUTION WIDTH 15.2 % (11.5-14.5)
[2024-05-10 17:43] LABS: WHITE BLOOD COUNT 192.6 X10'3 (4.5-11.0)
[2024-05-10 17:50] LABS: ALBUMIN 3.9 G/DL (3.4-5.0); ANION GAP 10 (8-16); BLOOD UREA NITROGEN 23 MG/DL (7-18); BUN/CREATININE RATIO 30.7 (10.0-20.0); CALCIUM 9.2 MG/DL (8.5-10.1); CHLORIDE 108 MMOL/L (99-107); CREATININE 0.75 MG/DL (0.40-0.90); GLUCOSE 128 MG/DL (70-104); POTASSIUM 4.1 MMOL/L (3.5-5.1); PRO BRAIN NATRIURETIC PEPTIDE 203 PG/ML (0-125); SODIUM 143 MMOL/L (135-145); TOTAL CARBON DIOXIDE 24.7 MMOL/L (24-32); eCRCL 53 ML/MIN; eGFR 77 ML/MIN
[2024-05-10 18:08] LABS: TOTAL CELLS COUNTED 100
[2024-05-10 18:10] LABS: PLATELET ESTIMATE NORMAL
[2024-05-10] MEDS: normal saline 1000ml 1,000 ML IV ONE (20:00)
[2024-05-10] MEDS ORDERED: iohexol 350MG/ML 100ml bottle IV ONE (20:07)
[2024-05-10 22:20] VITALS: BP 136/77; PULSE 93; RESP 17; TEMP 97.6; O2SAT 97
== END 2024-05-10 22:28 | disposition home or self-care (01) ==
LOC: ER 16:45
DX: R06.02 Shortness of breath (principal); I11.0 Hypertensive heart disease with heart failure; I50.9 Heart failure, unspecified; J44.9 Chronic obstructive pulmonary disease, unspecified; K21.9 Gastro-esophageal reflux disease without esophagitis; M19.90 Unspecified osteoarthritis, unspecified site; F41.9 Anxiety disorder, unspecified; F32.A Depression, unspecified; Z91.09 Other allergy status, other than to drugs and biological substances; Z91.040 Latex allergy status; Z79.82 Long term (current) use of aspirin; Z79.899 Other long term (current) drug therapy; Z79.1 Long term (current) use of non-steroidal anti-inflammatories (NSAID); Z90.49 Acquired absence of other specified parts of digestive tract; Z90.710 Acquired absence of both cervix and uterus
CPT/HCPCS: 36415; 71045; 71275; 80048; 83605; 83880; 85007; 85025; 87040; 93005; 99285; J7030; Q9967; 74176

== ENCOUNTER 2024-05-23 21:08 | Inpatient (IN) | payer MEDICARE, MEDICAID ==
[~2024-05-23] VITALS: Ht 157.5 cm; Wt 45.0 kg
[2024-05-23 22:02] LABS: EOSINOPHILS # (AUTO) 0.8 X10'3 (0-0.9); EOSINOPHILS % (AUTO) 0.5 % (0-6); HEMATOCRIT 38.8 % (35.0-45.0); MEAN PLATELET VOLUME 6.7 FL (7.4-10.4)
[2024-05-23 22:05] LABS: BASOPHILS # (AUTO) 0.5 X10'3 (0-0.2); BASOPHILS % (AUTO) 0.4 % (0-1); HEMOGLOBIN 12.6 g/dl (12.0-16.0); LYMPHOCYTES # (AUTO) 129.1 X10'3 (1.1-4.8); LYMPHOCYTES % (AUTO) 89.6 % (21-51); MEAN CORPUSCULAR HEMOGLOBIN 30.3 PG (27.0-31.0); MEAN CORPUSCULAR HGB CONC 32.4 g/dL (33.0-36.5); MEAN CORPUSCULAR VOLUME 93.6 FL (78-98); MONOCYTES % (AUTO) 0.7 % (2-12); NEUTROPHILS # (AUTO) 12.7 X10'3 (1.8-7.7); NEUTROPHILS % (AUTO) 8.8 % (42-75); PLATELET COUNT 237 X10'3 (140-440); RED BLOOD COUNT 4.15 X10'6 (4.20-5.60); RED CELL DISTRIBUTION WIDTH 15.1 % (11.5-14.5)
[2024-05-23 22:17] LABS: ALANINE AMINOTRANSFERASE 37 U/L (12-78); ALBUMIN 4.1 G/DL (3.4-5.0); ALBUMIN/GLOBULIN RATIO 1.5 (1.1-1.5); ALKALINE PHOSPHATASE 105 IU/L (46-116); ANION GAP 11 (8-16); ASPARTATE AMINO TRANSFERASE 25 U/L (10-37); BILIRUBIN,TOTAL 0.3 MG/DL (0.1-1.0); BLOOD UREA NITROGEN 15 MG/DL (7-18); BUN/CREATININE RATIO 18.8 (10.0-20.0); CALCIUM 9.3 MG/DL (8.5-10.1); CHLORIDE 104 MMOL/L (99-107); GLUCOSE 141 MG/DL (70-104); POTASSIUM 4.4 MMOL/L (3.5-5.1); SODIUM 142 MMOL/L (135-145); TOTAL CARBON DIOXIDE 26.7 MMOL/L (24-32); TOTAL PROTEIN 6.9 G/DL (6.4-8.2); eCRCL 48 ML/MIN; eGFR 71 ML/MIN
[2024-05-23 22:49] LABS: PRO BRAIN NATRIURETIC PEPTIDE 229 PG/ML (0-125)
[2024-05-23 22:50] LABS: WHITE BLOOD COUNT 144.1 X10'3 (4.5-11.0)
[2024-05-23] MEDS: ipratropium/albuterol 3ml nebule NEB ONE (22:55)
[2024-05-23 22:56] VITALS: PULSE 91; RESP 20; O2SAT 93
[2024-05-23 23:04] VITALS: PULSE 90; RESP 20; O2SAT 98
[2024-05-23] MEDS: methylPREDNISolone sod succ 125mg/2ml vial IV ONE (23:11)
[2024-05-23] MEDS: magnesium sulf-water 2g/50mL 50 ML IV ONE (23:12)
[2024-05-23 23:16] LABS: PLATELET ESTIMATE NORMAL; TOTAL CELLS COUNTED 100
[2024-05-23 23:17] LABS: SMUDGE CELLS FEW
[2024-05-24] VITALS (18 sets, daily range): BP systolic 128–149; BP diastolic 71–98; PULSE 57–104; RESP 11–22; TEMP 97–98.2; O2SAT 92–98
[2024-05-24] MEDS ORDERED: IBRU420T PO (01:44)
[2024-05-24] MEDS ORDERED: ALLO300T8 PO (01:44)
[2024-05-24] MEDS ORDERED: ONDA-243 PO (01:44)
[2024-05-24] MEDS ORDERED: magnesium Cl slow-release 64mg tablet PO PRN (02:15)
[2024-05-24] MEDS ORDERED: magnesium hydroxide 30ml (MOM) UD suspension PO PRN (02:15)
[2024-05-24] MEDS ORDERED: potassium Cl 20 mEq SR tablet PO PRN ×2 (02:15)
[2024-05-24] MEDS ORDERED: magnesium sulf-water 4G/100mL 100 ML IV PRN (02:15)
[2024-05-24] MEDS ORDERED: magnesium sulf-water 2g/50mL 50 ML IV PRN (02:15)
[2024-05-24] MEDS ORDERED: ondansetron/PF 4mg/2ml inj IV PRN (02:15)
[2024-05-24] MEDS ORDERED: potassium Cl 40MEQ/1/2NS 520ml 520 ML IV PRN (02:15)
[2024-05-24] MEDS ORDERED: baclofen 10mg tablet PO PRN (02:45)
[2024-05-24 02:49] LABS: MAGNESIUM 1.9 MG/DL (1.5-2.4); PHOSPHORUS 4.1 MG/DL (2.3-4.5)
[2024-05-24] MEDS: CefTRIAXone/D5W-Rocephin 1gm 50 ML IV SCH (02:58)
[2024-05-24] MEDS: ipratropium/albuterol 3ml nebule NEB SCH (02:59)
[2024-05-24 06:13] LABS: BASOPHILS # (AUTO) 0.1 X10'3 (0-0.2); BASOPHILS % (AUTO) 0 % (0-1); EOSINOPHILS # (AUTO) 0.2 X10'3 (0-0.9); EOSINOPHILS % (AUTO) 0.1 % (0-6); HEMATOCRIT 36.9 % (35.0-45.0); HEMOGLOBIN 11.9 g/dl (12.0-16.0); LYMPHOCYTES % (AUTO) 88.8 % (21-51); MEAN CORPUSCULAR HGB CONC 32.3 g/dL (33.0-36.5); MEAN CORPUSCULAR VOLUME 92.8 FL (78-98); MEAN PLATELET VOLUME 6.9 FL (7.4-10.4); MONOCYTES # (AUTO) 2.5 X10'3 (0-0.9); MONOCYTES % (AUTO) 1.7 % (2-12); NEUTROPHILS # (AUTO) 13.8 X10'3 (1.8-7.7); NEUTROPHILS % (AUTO) 9.4 % (42-75); PLATELET COUNT 241 X10'3 (140-440); RED BLOOD COUNT 3.98 X10'6 (4.20-5.60); RED CELL DISTRIBUTION WIDTH 15.3 % (11.5-14.5)
[2024-05-24 06:21] LABS: WHITE BLOOD COUNT 147.6 X10'3 (4.5-11.0)
[2024-05-24 06:23] LABS: ALBUMIN 3.8 G/DL (3.4-5.0); ANION GAP 12 (8-16); BLOOD UREA NITROGEN 17 MG/DL (7-18); BUN/CREATININE RATIO 23.9 (10.0-20.0); CALCIUM 9.3 MG/DL (8.5-10.1); CHLORIDE 102 MMOL/L (99-107); CREATININE 0.71 MG/DL (0.40-0.90); GLUCOSE 161 MG/DL (70-104); POTASSIUM 4.2 MMOL/L (3.5-5.1); SODIUM 140 MMOL/L (135-145); eCRCL 54 ML/MIN; eGFR 82 ML/MIN
[2024-05-24] MEDS: budesonide 0.5mg/2ml UD nebule IH SCH (08:00)
[2024-05-24] MEDS ORDERED: IBRUTINIB PO SCH (08:00)
[2024-05-24] MEDS: VILANTER IH SCH (08:00)
[2024-05-24] MEDS: K and/or MAG REPLACEMENT MC SCH (08:00)
[2024-05-24] MEDS: FLUTICASONE IH SCH (08:00)
[2024-05-24] MEDS: UMECLIDIN IH SCH (08:00)
[2024-05-24 08:16] LABS: PLATELET ESTIMATE NORMAL; TOTAL CELLS COUNTED 100
[2024-05-24 08:29] LABS: HEMOGLOBIN A1C 5.4 % (4.5-6.2)
[2024-05-24] MEDS: duloxetine 20mg capsule.DR PO SCH (08:29)
[2024-05-24] MEDS: azithromycin 250mg tablet PO SCH (08:29)
[2024-05-24] MEDS: loratadine 10mg tablet PO SCH (08:29)
[2024-05-24] MEDS: aspirin 81mg, enteric-coated 1 TAB TABLET.DR PO SCH (08:30)
[2024-05-24] MEDS: enoxaparin 40mg/0.4ml syringe SUBCUT SCH (08:30)
[2024-05-24] MEDS: acetaminophen 325mg tablet PO PRN (09:03)
[2024-05-24 09:42] LABS: CHOL/HDL RATIO 2.9 (0.00-4.99); CHOLESTEROL 155 MG/DL (0-200); HDL CHOLESTEROL 54 MG/DL (35-60); LDL CHOLESTEROL 88 MG/DL (50-100); THYROID STIMULATING HORMONE 0.38 ulU/ml (0.34-4.50); TRIGLYCERIDES 47 MG/DL (20-135); URIC ACID 4.2 MG/DL (2.5-6.2)
[2024-05-24] MEDS ORDERED: morphine 2 MG/ML inj. syringe IV PRN (10:40)
[2024-05-24] MEDS: ipratropium/albuterol 3ml nebule NEB PRN (11:06)
[2024-05-24] MEDS: methylPREDNISolone sod succ/PF 40mg inj. IV ONE (18:52)
[2024-05-24] MEDS: pramipexole 0.25mg tablet PO SCH (19:31)
[2024-05-24] MEDS: atorvastatin 20mg tablet PO SCH (19:31)
[2024-05-24] MEDS: montelukast 10mg tablet PO SCH (19:31)
[2024-05-24] MEDS: mag hydrox/Alum hydrox/simeth 30ml oral suspension PO PRN (19:35)
[2024-05-24] MEDS: temazepam 15mg capsule PO ONE (22:07)
[2024-05-25] VITALS (15 sets, daily range): BP systolic 137–146; BP diastolic 69–82; PULSE 71–96; RESP 16–25; TEMP 97–99.1; O2SAT 91–97
[2024-05-25 06:19] LABS: EOSINOPHILS % (AUTO) 0 % (0-6)
[2024-05-25 06:24] LABS: BASOPHILS % (AUTO) 0 % (0-1); HEMATOCRIT 37.6 % (35.0-45.0); HEMOGLOBIN 11.7 g/dl (12.0-16.0); LYMPHOCYTES # (AUTO) 174.5 X10'3 (1.1-4.8); LYMPHOCYTES % (AUTO) 88.8 % (21-51); MEAN CORPUSCULAR HEMOGLOBIN 29.2 PG (27.0-31.0); MEAN CORPUSCULAR VOLUME 94.3 FL (78-98); MEAN PLATELET VOLUME 7.1 FL (7.4-10.4); MONOCYTES # (AUTO) 3.3 X10'3 (0-0.9); MONOCYTES % (AUTO) 1.7 % (2-12); NEUTROPHILS # (AUTO) 18.7 X10'3 (1.8-7.7); NEUTROPHILS % (AUTO) 9.5 % (42-75); PLATELET COUNT 254 X10'3 (140-440); RED BLOOD COUNT 3.99 X10'6 (4.20-5.60); RED CELL DISTRIBUTION WIDTH 15.1 % (11.5-14.5)
[2024-05-25 06:25] LABS: WHITE BLOOD COUNT 196.5 X10'3 (4.5-11.0)
[2024-05-25 06:31] LABS: ALBUMIN 3.6 G/DL (3.4-5.0); ANION GAP 10 (8-16); BLOOD UREA NITROGEN 25 MG/DL (7-18); BUN/CREATININE RATIO 33.8 (10.0-20.0); CALCIUM 9.1 MG/DL (8.5-10.1); CHLORIDE 103 MMOL/L (99-107); CREATININE 0.74 MG/DL (0.40-0.90); GLUCOSE 120 MG/DL (70-104); POTASSIUM 4.7 MMOL/L (3.5-5.1); SODIUM 141 MMOL/L (135-145); TOTAL CARBON DIOXIDE 27.6 MMOL/L (24-32); eCRCL 52 ML/MIN; eGFR 78 ML/MIN
[2024-05-25 07:41] LABS: PLATELET ESTIMATE NORMAL; TOTAL CELLS COUNTED 100
[2024-05-25] MEDS ORDERED: acetaminophen 325mg tablet PO PRN (15:45)
[2024-05-25] MEDS: methylPREDNISolone sod succ/PF 40mg inj. IV ONE (15:47)
[2024-05-25] MEDS: lactose-reduced food (Ensure Enlive) - 237ml bottle PO SCH (17:30)
[2024-05-25] MEDS: temazepam 15mg capsule PO ONE (22:25)
[2024-05-26] VITALS (7 sets, daily range): BP systolic 116–145; BP diastolic 73–85; PULSE 85–116; RESP 14–31; TEMP 97.5–98.5; O2SAT 92–95
[2024-05-26 06:31] LABS: BASOPHILS # (AUTO) 0.1 X10'3 (0-0.2); BASOPHILS % (AUTO) 0 % (0-1); EOSINOPHILS # (AUTO) 0.1 X10'3 (0-0.9); EOSINOPHILS % (AUTO) 0 % (0-6); HEMATOCRIT 35.6 % (35.0-45.0); LYMPHOCYTES # (AUTO) 216.9 X10'3 (1.1-4.8); LYMPHOCYTES % (AUTO) 93.5 % (21-51); MEAN CORPUSCULAR HEMOGLOBIN 29.1 PG (27.0-31.0); MEAN CORPUSCULAR HGB CONC 30.8 g/dL (33.0-36.5); MEAN CORPUSCULAR VOLUME 94.3 FL (78-98); MEAN PLATELET VOLUME 6.8 FL (7.4-10.4); MONOCYTES # (AUTO) 3.1 X10'3 (0-0.9); MONOCYTES % (AUTO) 1.3 % (2-12); NEUTROPHILS # (AUTO) 12.1 X10'3 (1.8-7.7); NEUTROPHILS % (AUTO) 5.2 % (42-75); PLATELET COUNT 234 X10'3 (140-440); RED BLOOD COUNT 3.78 X10'6 (4.20-5.60); RED CELL DISTRIBUTION WIDTH 15.2 % (11.5-14.5)
[2024-05-26 06:37] LABS: ALBUMIN 3.3 G/DL (3.4-5.0); ANION GAP 6 (8-16); BLOOD UREA NITROGEN 22 MG/DL (7-18); BUN/CREATININE RATIO 30.6 (10.0-20.0); CHLORIDE 105 MMOL/L (99-107); CREATININE 0.72 MG/DL (0.40-0.90); GLUCOSE 87 MG/DL (70-104); POTASSIUM 4.2 MMOL/L (3.5-5.1); SODIUM 140 MMOL/L (135-145); TOTAL CARBON DIOXIDE 28.9 MMOL/L (24-32); WHITE BLOOD COUNT 232.2 X10'3 (4.5-11.0); eCRCL 53 ML/MIN; eGFR 81 ML/MIN
[2024-05-26 08:16] LABS: IMMATURE CELLS 3 % (0-0); TOTAL CELLS COUNTED 100
[2024-05-26 08:17] LABS: PLATELET ESTIMATE NORMAL
[2024-05-26] MEDS: famotidine 20mg tablet PO SCH (08:20)
[2024-05-26 09:23] LABS: BASOPHILS # (AUTO) 0.2 X10'3 (0-0.2); BASOPHILS % (AUTO) 0.1 % (0-1); EOSINOPHILS # (AUTO) 0.2 X10'3 (0-0.9); EOSINOPHILS % (AUTO) 0.1 % (0-6); MEAN PLATELET VOLUME 6.6 FL (7.4-10.4)
[2024-05-26 09:25] LABS: HEMATOCRIT 34.9 % (35.0-45.0); LYMPHOCYTES # (AUTO) 234.9 X10'3 (1.1-4.8); LYMPHOCYTES % (AUTO) 93.3 % (21-51); MEAN CORPUSCULAR HEMOGLOBIN 29.5 PG (27.0-31.0); MEAN CORPUSCULAR HGB CONC 31.4 g/dL (33.0-36.5); MEAN CORPUSCULAR VOLUME 93.7 FL (78-98); MONOCYTES # (AUTO) 5.2 X10'3 (0-0.9); MONOCYTES % (AUTO) 2.1 % (2-12); NEUTROPHILS # (AUTO) 11.2 X10'3 (1.8-7.7); NEUTROPHILS % (AUTO) 4.4 % (42-75); PLATELET COUNT 245 X10'3 (140-440); RED BLOOD COUNT 3.72 X10'6 (4.20-5.60)
[2024-05-26 09:28] LABS: WHITE BLOOD COUNT 251.7 X10'3 (4.5-11.0)
[2024-05-26 09:39] LABS: PLATELET ESTIMATE NORMAL; TOTAL CELLS COUNTED 100
[2024-05-26] MEDS: ipratropium/albuterol 3ml nebule NEB ONE (11:20)
[2024-05-26] MEDS: predniSONE 20 mg tablet PO ONE (11:52)
[2024-05-26] MEDS ORDERED: LACT1CAP26 PO (12:16)
[2024-05-26] MEDS ORDERED: CEFD300C3 PO (12:16)
[2024-05-26] MEDS ORDERED: PRED10TA23 PO (12:19)
[2024-05-26] MEDS ORDERED: DOCU100C40 PO (12:25)
[2024-05-26] MEDS: docusate sod 100mg capsule PO ONE (14:30)
== END 2024-05-26 21:25 | disposition home health service (06) | DRG 189 ==
LOC: ER 21:09 → ED HOLD 05-24 02:21 → EDBEDREQ 05-24 02:49 → PCU 3S 05-24 04:16
PROVIDERS: ADMIT Internal Medicine Critical Care Medicine; ATTEND Family Medicine
DX: J96.00 Acute respiratory failure, unspecified whether with hypoxia or hypercapnia (principal); J44.1 Chronic obstructive pulmonary disease with (acute) exacerbation; C91.10 Chronic lymphocytic leukemia of B-cell type not having achieved remission; J43.9 Emphysema, unspecified; F32.A Depression, unspecified; F41.9 Anxiety disorder, unspecified; K21.9 Gastro-esophageal reflux disease without esophagitis; I11.0 Hypertensive heart disease with heart failure; Z20.822 Contact with and (suspected) exposure to COVID-19; I50.9 Heart failure, unspecified; G25.81 Restless legs syndrome; M79.7 Fibromyalgia; Z91.040 Latex allergy status; Z91.09 Other allergy status, other than to drugs and biological substances; Z87.11 Personal history of peptic ulcer disease; Z87.891 Personal history of nicotine dependence; Z90.710 Acquired absence of both cervix and uterus; Z79.82 Long term (current) use of aspirin; Z79.899 Other long term (current) drug therapy; Z90.49 Acquired absence of other specified parts of digestive tract
CPT/HCPCS: 36415; 71045; 80048; 80053; 80061; 83036; 83735; 83880; 84100; 84145; 84443; 84484; 84550; 85007; 85025; 87081; 87811; 93005; 93306; 94640; 94760; 97110; 97116; 97162; 97530; 99285; G0378; J0696; J1650; J2919; J7030; J7512